=== PATIENT | male | born 1930 | race Caucasian/White ===

== ENCOUNTER 2017-01-11 03:16 | Inpatient (IN) | payer MEDICARE ==
[2017-01-10 13:08] VITALS: PULSE 87
[2017-01-11] VITALS (17 sets, daily range): BP systolic 160–232; BP diastolic 86–118; PULSE 63–102; RESP 16–22; TEMP 97.6–98.6; O2SAT 94–98
[2017-01-11] MEDS ORDERED: cloNIDine HCL 0.1 MG TAB PO ONE (03:30)
--- NOTE | 2017-01-11 03:35 | PD ---
HPI Chief Complaint: HTN Time Seen by Provider: 03:29 Travel History International Travel<30 days: No Contact w/Intl Traveler<30days: No Traveled to known affect area: No History of Present Illness HPI PATIENT DENIES ANY COMPLAINT....HOWEVER FAMILY MEMBER CALLED 911 STATING PATIENT WAS NOT HIMSELF MOST LIKELY DUE TO "WORSENING DEMENTIA AND NOT ABLE TO TAKE CARE OF HIMSELF." NO FAMILY ARRIVED WITH PATIENT......AT A LATER TIME DAUGHTER ARRIVED (AROUND 0440) AND GAVE HISTORY OF 2-3 DAYS OF HER DAD NOT "FEELING WELL" DENIES CP/SOB BUT DAUGHTER STATES THAT HE HAS NOT TAKEN HIS MEDICATIONS FOR SEVERAL WEEKS BECAUSE HE HAS A "BOLIVIAN CAREGIVER" THAT SAYS "[employer]" SO SHE ENCOURAGES PATIENT NOT TO TAKE MEDICATIONS PER DAUGHTER. [facility] Social History Tobacco Use: No Allergies-Medications (Allergen,Severity, Reaction): Coded Allergies: No Known Allergies (Unverified , 01/11/17) Reported Meds & Prescriptions Reported Meds & Active Scripts Active Active Prescriptions or Reported Medications Unobtainable Review of Systems ROS Limitations: Poor Historian (DENIES ANY COMPLAINT) Except as stated in HPI: all other systems reviewed are Neg Physical Exam Narrative GENERAL: SKIN: Warm and dry. HEAD: Atraumatic. Normocephalic. EYES: Pupils equal and round. No scleral icterus. No injection or drainage. ENT: No nasal bleeding or discharge. Mucous membranes pink and moist. NECK: Trachea midline. No JVD. CARDIOVASCULAR: Regular rate and rhythm. RESPIRATORY: No accessory muscle use. Clear to auscultation. Breath sounds equal bilaterally. GASTROINTESTINAL: Abdomen soft, non-tender, nondistended. MUSCULOSKELETAL: Extremities without clubbing, cyanosis, or edema. No obvious deformities. NEUROLOGICAL: Awake and alert. No obvious cranial nerve deficits. Motor grossly within normal limits. Five out of 5 muscle strength in the arms and legs. Normal speech. PSYCHIATRIC: Appropriate mood and affect; insight and judgment normal. Data Data Last Documented VS Vital Signs Date Time Temp Pulse Resp B/P (MAP) Pulse Ox O2 Delivery O2 Flow Rate FiO2 01/11/17 04:30 66 16 187/86 (119) 97 Nasal Cannula 2.00 01/11/17 03:29 97.9 Orders Orders Electrocardiogram (01/11/17 03:30) Complete Blood Count With Diff (01/11/17 03:30) Basic Metabolic Panel (Bmp) (01/11/17 03:30) Troponin I (01/11/17 03:30) B-Type Natriuretic Peptide (01/11/17 03:30) Prothrombin Time / Inr (Pt) (01/11/17 03:30) Act Partial Throm Time (Ptt) (01/11/17 03:30) Urinalysis - C+S If Indicated (01/11/17 03:30) Chest, Single Ap (01/11/17 03:30) Ct Brain W/O Iv Contrast(Rout) (01/11/17 03:30) Clonidine (Catapres) (01/11/17 03:30) Aspirin Chew (Aspirin Chew) (01/11/17 04:45) Nitroglycerin 2% Oint (Nitroglycerin 2% (01/11/17 04:45) Furosemide Inj (Lasix Inj) (01/11/17 04:45) Admit Order (Ed Use Only) (01/11/17 05:08) Labs Laboratory Tests Test 01/11/17 03:40 01/11/17 03:45 White Blood Count 8.8 TH/MM3 Red Blood Count 4.31 MIL/MM3 Hemoglobin 13.2 GM/DL Hematocrit 39.7 % Mean Corpuscular Volume 92.2 FL Mean Corpuscular Hemoglobin 30.5 PG Mean Corpuscular Hemoglobin Concent 33.1 % Red Cell Distribution Width 14.7 % Platelet Count 200 TH/MM3 Mean Platelet Volume 9.7 FL Neutrophils (%) (Auto) 69.8 % Lymphocytes (%) (Auto) 17.5 % Monocytes (%) (Auto) 8.7 % Eosinophils (%) (Auto) 3.3 % Basophils (%) (Auto) 0.7 % Neutrophils # (Auto) 6.2 TH/MM3 Lymphocytes # (Auto) 1.5 TH/MM3 Monocytes # (Auto) 0.8 TH/MM3 Eosinophils # (Auto) 0.3 TH/MM3 Basophils # (Auto) 0.1 TH/MM3 CBC Comment DIFF FINAL Differential Comment Prothrombin Time 11.7 SEC Prothromb Time International Ratio 1.1 RATIO Activated Partial Thromboplast Time 27.8 SEC Blood Urea Nitrogen 32 MG/DL Creatinine 1.71 MG/DL Random Glucose 95 MG/DL Calcium Level 9.4 MG/DL Sodium Level 143 MEQ/L Potassium Level 3.3 MEQ/L Chloride Level 108 MEQ/L Carbon Dioxide Level 29.3 MEQ/L Anion Gap 6 MEQ/L Estimat Glomerular Filtration Rate 38 ML/MIN Troponin I 0.11 NG/ML B-Type Natriuretic Peptide 2534 PG/ML Urine Color LIGHT-YELLOW Urine Turbidity CLEAR Urine pH 7.0 Urine Specific [place] 1.007 Urine Protein 100 mg/dL Urine Glucose (UA) NEG mg/dL Urine Ketones NEG mg/dL Urine Occult Blood TRACE Urine Nitrite NEG Urine Bilirubin NEG Urine Urobilinogen LESS THAN 2.0 MG/DL Urine Leukocyte Esterase NEG Urine RBC 1 /hpf Urine WBC LESS THAN 1 /hpf Microscopic Urinalysis Comment CULT NOT INDICATED MDM Medical Decision Making Medical Screen Exam Complete: Yes Emergency Medical Condition: Yes Medical Record Reviewed: Yes Interpretation(s) NSR 74, LVH, INFERIOLATERAL T WAVE INVERSION NOTED, NO STEMI PATTERN Differential Diagnosis PNA V UTI V CHF V STEMI V ANEMIA Narrative Course PATIENT WAS FOUND TO HAVE ELEV TROPONIN, ELEVATED BP AND FLUID IN LUNGS C/W HYPERTENSIVE EMERGENCY....PATIENT WAS AGGRESIVELY MANAGED AND ADMITTED Critical Care Narrative CRITICAL CARE NOTE: With evaluation of the patient, labs, EKG, receipt of radiologic studies, administration of medications, reevaluation the patient and discussion of the patient with the admitting physicians, the total critical care time was [45] minutes. Time to perform other separately billable procedures was not included in the critical care time. Diagnosis Primary Impression: Hypertensive urgency Additional Impressions: Acute exacerbation of CHF (congestive heart failure) Qualified Codes: I50.9 - Heart failure, unspecified Non-ST elevated myocardial infarction (non-STEMI) Admitting Information Admitting Physician Requests: Admit Scripts Unable to Obtain Active Prescriptions or Reported Efrain Faulkner MD Jan 11, 2017 03:35
[2017-01-11 03:56] LABS: BLOOD, URINE TRACE (NEG); GLUCOSE,URINE NEG (NEG); KETONE, URINE NEG (NEG); NITRITE,URINE NEG (NEG); URINE COLOR LIGHT-YELLOW (YELLW/STRAW)
[2017-01-11 04:02] LABS: AUTOMATED NEUTROPHIL # 6.2 TH/MM3 (1.8-7.7); BASOPHIL # 0.1 TH/MM3 (0-0.2); BASOPHIL % 0.7 % (0.0-2.0); EOSINOPHIL # 0.3 TH/MM3 (0-0.4); EOSINOPHIL % 3.3 % (0.0-4.0); HEMATOCRIT 39.7 % (39.0-51.0); HEMO FLAGS DIFF FINAL; LYMPH % 17.5 % (9.0-44.0); LYMPHOCYTE # 1.5 TH/MM3 (1.0-4.8); MEAN CELL VOLUME 92.2 FL (80.0-100.0); MEAN CORPUSCULAR HEMOGLOBIN 30.5 PG (27.0-34.0); MEAN CORPUSCULAR HGB CONC 33.1 % (32.0-36.0); MONO % 8.7 % (0.0-8.0); NEUT % 69.8 % (16.0-70.0); PLATELET COUNT 200 TH/MM3 (150-450); RED BLOOD COUNT 4.31 MIL/MM3 (4.50-5.90); RED CELL DISTRIBUTION WIDTH 14.7 % (11.6-17.2); WHITE BLOOD COUNT 8.8 TH/MM3 (4.0-11.0)
[2017-01-11 04:11] LABS: COMMENT (UR) CULT NOT INDICATED; CULTURE IF INDICATED CULT NOT INDICATED
[2017-01-11 04:17] LABS: APTT (PATIENT) 27.8 SEC (24.3-30.1); INTERNATIONAL NORMALIZED RATIO 1.1 RATIO; PROTHROMBIN TIME - PATIENT 11.7 SEC (9.8-11.6)
[2017-01-11 04:24] LABS: BICARBONATE 29.3 MEQ/L (21.0-32.0); POTASSIUM 3.3 MEQ/L (3.5-5.1)
--- NOTE | 2017-01-11 04:29 | RADRPT ---
EXAM DATE/TIME: 01/11/2017 03:44 [facility] COMPARISON: No previous studies available for comparison. INDICATIONS : Elevated blood pressure. RADIATION DOSE: 56.35 CTDIvol (mGy) MEDICAL HISTORY : Dementia. SURGICAL HISTORY : None. ENCOUNTER: Initial ACUITY: 1 day PAIN SCALE: 0/10 LOCATION: distal TECHNIQUE: Multiple contiguous axial images were obtained of the head. Using automated exposure control and adj ustment of the mA and/or kV according to patient size, radiation dose was kept as low as reasonably a chievable to obtain optimal diagnostic quality images. DICOM format image data is available electro nically for review and comparison. FINDINGS: CEREBRUM: The ventricles are normal for age. No evidence of midline shift, mass lesion, hemorrhage or acute in farction. No extra-axial fluid collections are seen. POSTERIOR FOSSA: The cerebellum and brainstem are intact. The 4th ventricle is midline. The cerebellopontine angle i s unremarkable. EXTRACRANIAL: The visualized portion of the orbits is intact. SKULL: The calvaria is intact. No evidence of skull fracture. CONCLUSION: 1. No acute findings. Mild white matter ischemic changes. Kev Bobby MD on January 11, 2017 at 4:24 Board Certified Radiologist. This report was verified electronically.
--- NOTE | 2017-01-11 04:36 | RADRPT ---
EXAM DATE/TIME: 01/11/2017 03:42 [facility] COMPARISON: No previous studies available for comparison. INDICATIONS : Shortness of breath and hypertension. MEDICAL HISTORY : None. SURGICAL HISTORY : CABG. ENCOUNTER: Initial ACUITY: 1 day PAIN SCORE: 0/10 LOCATION: chest FINDINGS: A single view of the chest demonstrates cardiomegaly with mild basilar airspace disease and small eff usions. Findings most characteristic of mild congestive heart failure. No pneumothorax. CONCLUSION: 1. Mild congestive heart failure. Kev Bobby MD on January 11, 2017 at 4:34 Board Certified Radiologist. This report was verified electronically.
[2017-01-11] MEDS ORDERED: NITROGLYCERIN 2% OINT 1 GM PACKET TOP ONE (04:45)
[2017-01-11] MEDS ORDERED: FUROSEMIDE 20 MG/2 ML VIAL IV PUSH ONE (04:45)
[2017-01-11] MEDS ORDERED: ASPIRIN 81 MG CHEW TAB PO ONE (04:45)
[2017-01-11] MEDS ORDERED: ACETAMINOPHEN 325 MG TAB PO PRN (05:15)
[2017-01-11] MEDS ORDERED: LACTULOSE SYRUP 20 GM/30 ML CUP PO PRN (05:15)
[2017-01-11] MEDS ORDERED: NITROGLYCERIN 2% OINT 1 GM PACKET TOP SCH (05:15)
[2017-01-11] MEDS ORDERED: SENNOSIDES 8.6 MG TAB PO PRN (05:15)
[2017-01-11] MEDS ORDERED: ONDANSETRON HCL 4 MG/2 ML VIAL IVP PRN (05:15)
[2017-01-11] MEDS ORDERED: BISACODYL 10 MG SUPP RECTAL PRN (05:15)
[2017-01-11] MEDS ORDERED: MAGNESIUM HYDROXIDE SUSP 30 ML CUP PO PRN (05:15)
[2017-01-11] MEDS ORDERED: POTASSIUM CHLORIDE 20 MEQ CONTROLLED RELEASE TAB PO ONE ×2 (05:15→07:45)
[2017-01-11] MEDS ORDERED: SODIUM CHLORIDE 0.9% FLUSH 10 ML FLUSH IV FLUSH PRN (05:15)
[2017-01-11] MEDS ORDERED: NITROGLYCERIN 0.4 MG SL 25 TABS/BTL SL PRN (05:15)
[2017-01-11] MEDS ORDERED: NALOXONE HCL 0.4 MG/ML AMP IV PUSH PRN (05:15)
[2017-01-11] MEDS: HEPARIN SODIUM - SQ 10,000 UNITS/ML VIAL SQ SCH ×2 (05:58→17:15)
[2017-01-11] MEDS ORDERED: METOLAZONE 5 MG TAB PO ONE (08:45)
[2017-01-11] MEDS ORDERED: FUROSEMIDE 20 MG/2 ML VIAL IV PUSH SCH (09:00)
--- NOTE | 2017-01-11 09:09 | MB ---
cc: PEEWEE STYLES M.D. DATE OF CONSULTATION: 01/11/2017 REASON FOR CONSULTATION Congestive heart failure. HISTORY OF PRESENT ILLNESS The patient is an 86-year-old white male, somewhat of a poor historian, with a history of hypertension, hyperlipidemia, dementia, coronary artery disease, who was brought to the hospital by family apparently due to failure to thrive. The patient has been developing worsening dementia and decreasing ability to take care of himself. According to the records he may have not been getting his medications for a few weeks. Work-up here in the hospital suggests congestive heart failure. The patient states his "breathing has been off" recently. He denies paroxysmal nocturnal dyspnea, dizziness, syncope, near-syncope, palpitations, chest pain. He also notes recent increase in baseline pedal edema. For the most part he is sedentary although he does activities around the house. PAST MEDICAL HISTORY 1. 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 2. Hypertension. 3. Hyperlipidemia. 4. Coronary artery disease status post four-vessel bypass surgery in 1979 with a redo bypass operation in 1993 (three-vessel), history of stent of a graft in 1997. 5. Osteoarthritis. 6. Dementia. PAST SURGICAL HISTORY 1. Two coronary artery bypass graft surgeries. 2. Right knee surgery. 3. Skin cancer excision. MEDICATIONS His cardiac medications at home are currently unknown. ALLERGIES No known drug allergies. FAMILY HISTORY Noncontributory. SOCIAL HISTORY The patient denies any history of alcohol or tobacco abuse. REVIEW OF SYSTEMS As in the history of present illness, otherwise negative or noncontributory. He also denies headache, abdominal pain, melena, dyspepsia, bright red blood per rectum, wheezing, cough. PHYSICAL EXAMINATION VITAL SIGNS: On physical examination his blood pressure is 175/90 with a pulse of 63, respirations 16. GENERAL: In general he is a well-developed, well-nourished white male in no acute distress. HEENT/NECK: Jugular venous pressure is normal. Carotid pulses are 2+ bilaterally and without bruits. CHEST: Examination of the chest reveals diminished breath sounds at the bases. CARDIAC: On cardiac examination he has a regular rhythm and rate with an S1, S2, S3. No definite murmur is audible. ABDOMEN: On abdominal examination he has a soft, nontender abdomen. Bowel sounds are present. There is no definite hepatosplenomegaly. EXTREMITIES: Examination of the extremities reveals no clubbing or cyanosis. There is 2+ pretibial edema bilaterally. EKG EKG shows sinus rhythm with premature atrial complexes, voltage criteria for left ventricular hypertrophy, nonspecific lateral T-wave abnormalities, no change from 1996. IMAGING Chest x-ray shows bibasilar airspace disease with small bilateral pleural effusions. LABORATORY Laboratory data includes troponin 0.11, BUN 32, creatinine 1.71, potassium 3.3, hemoglobin 13.2, WBC 8.8, platelets 200, brain natriuretic peptide level 2534. IMPRESSION Congestive heart failure in this 86-year-old white male with a history of coronary artery disease status post bypass surgeries x2, history of hypertension, hyperlipidemia, dementia. Chest x-ray, laboratory data and exam are all consistent with mild to moderate congestive heart failure. The precipitating factor for the heart failure may be multifactorial. He apparently has not received his medications in a few weeks. Overall there is no definite evidence for acute coronary syndrome, although the patient is a poor historian. Echocardiogram is pending. The slightly elevated troponin level is nonspecific, possibly due to congestive heart failure as well as his renal insufficiency. RECOMMENDATIONS 1. Continue intravenous Lasix diuresis. 2. Try to add low-dose beta vishnu. 3. No KRISHNA inhibitor at this time with his renal insufficiency. 4. Await his 2-D echo. 5. Overall conservative cardiac therapy and evaluation given his poor functional status, dementia, advanced age. MD DELLA Najera/MINI /8:33 AM /8:50 AM JAVY
--- NOTE | 2017-01-11 09:16 | MH ---
cc: JORGITO LAKE MD DATE OF ADMISSION 01/11/2017 DATE OF 1930 REASON FOR ADMISSION Uncontrolled blood pressure, possible as confusion. TRAVEL IN THE LAST 30 DAYS None HISTORY OF PRESENT ILLNESS This is an 86-year-old white male who was brought to the emergency room via ambulance called by a family member. According to the daughter who arrived at a later time states that her father has not been feeling well and she is not sure that he is taking all his medicine correctly. According to the record, there is a Chinese caregiver who daughter feels does not encourage her dad to take his meds. The patient is a poor historian. He is unable to give any accurate history. He does answer a few simple questionable and he does state that he has been having some left-sided chest pain. He does not know how long or any other information. He denies any shortness of breath, denies any headache. His statement is, "I just have not felt well.". The patient does note some mild nausea, but no vomiting. Most of the information is being gathered from the chart. MEDICAL AND SURGICAL HISTORY Currently unable to obtain any other medical information, except it is noted the patient has: 1. Dementia 2. Cardiovascular disease 3. The patient has a scar on his lower extremities as well as a scar from CABG. 4. Hypertension which is uncontrolled. 5. Congestive heart failure ALLERGIES No known drug allergies. MEDICATIONS Active, none reported. None brought with him. REVIEW OF SYSTEMS Poor historian, unable to obtain any accurate ROS except the patient has complained of some left sided chest pain nonradiating. He has not been feeling well. Nausea, but no vomiting. Unknown if he has been taking his medication or not. Other systems negative or unremarkable. PHYSICAL EXAM VITAL SIGNS: Temperature is 97.9, pulse 88 for the high, 63 for the low, respiratory rate 16, blood pressure initially on admission 232/118 now 170/90, O2 sat 98 currently two liters nasal cannula as needed. GENERAL: This is an elderly white male looks to be his stated age. He is awake, resting in the bed with no acute shortness of breath, poor historian. SKIN: Turgor, pale, pink. Mucous membranes are pink, warm, and dry. HEENT: Atraumatic, normocephalic. BENNETT at 2. Mucous membranes are slightly dry. No scleral icterus. NECK: Supple. CARDIOVASCULAR: S1, S2, palpable systolic murmur noted at the left sternal border. S3 gallop. He has 2+ pitting edema in his lower extremities. His extremities are warm to touch. LUNGS: Sounds are diminished with bibasilar rales and decreased breath sounds in the bases bilateral. No active wheezing or rhonchi. ABDOMEN: Round, soft, nontender, nondistended. Bowel sounds are active. MUSCULOSKELETAL: Moves his extremities with purpose. No obvious deformities. NEUROLOGIC: He is a poor historian, but he is awake. He has no facial grimace, equal dried yeast supervisor in his extremities. PSYCHIATRIC: Mood and affect are appropriate without any anxiety. DIAGNOSTIC DATA WBC count 8.8, RBC 4.31, hemoglobin 13.2, hematocrit 39.7, platelet count 200, elevated diff, monocyte percentage 8.7, PT/INR is 1.1. Chemistry sodium 143, potassium 3.3, chloride 108, carbon dioxide 29.3, amnion gap 6, BUN 32, creatinine 1.71, GFR 38, troponin 0.11, BNP 2534. Urine is negative except for a trace of occult blood and protein level is 100. No culture is indicated. IMAGING STUDIES Shows chest x-ray to have mild congestive heart failure. Head CT, no acute findings, mild white matter ischemic changes. ASSESSMENT/PLAN 1. CHF exacerbation, elevated troponin's, rule out IA. 2. Possible non-STEMI, chest pain. 3. Hypertensive urgency 4. Acute kidney injury, rule out chronic kidney disease 5. Dementia Our plan is to: 1. Admit inpatient status. 2. We will monitor vital signs q4. 3. Cardiac telemetry. 4. Heart healthy diet. 5. The patient is receiving p.o. potassium, heparin subcu for DVT prophylaxis. 6. Bowel regimen with stool softeners and laxatives as needed. 7. We will place him on an aspirin, nitroglycerin ointment, consult cardiology for their expert opinion. 8. A 2-D echo has been ordered. 9. PUD prophylaxis with Pepcid. 10. The patient is receiving IV Lasix 20 mg b.i.d. He did receive Lasix in the emergency room and he is actively diuresing. 11. We well monitor intensive intake and output, daily weight. 12. Out of bed, but only with assistance. 13. The patient had clonidine ordered 0.1 mg p.o. He received one dose in the emergency room and we will give as needed doses for systolic BP greater than 160 or greater than 90. There is no family present. We will need to gather more information and data. It looks like there was a daughter who was here earlier this morning. Currently the patient is full code, full aggressive care and we will continue to follow. Dictated by BRANDIN Hyatt MD SARA Navarro/SAM /8:30 AM /8:47 AM seen, examined by myself, Dr Lake, today Discussed with patient's granddaughter at his bedside Patient is very confused, combative, argumentative, very difficult to examine, 86-year-old gentleman with history of dementia, hyperlipidemia, hypertension, CABG Admitted with acute systolic heart failure, ejection fraction 20-25% with global hypokinesis, In addition his creatinine was 1.7, potassium 3.3, blood pressure 192/110, troponin is 0.11 Seen [address] tobacco sizer Dr[address] Rodgers Due to diuretics, follow renal function, replace potassium, blood pressure control with hydralazine Unclear if this gentleman would benefit from a defibrillator Discussed with mid level provider Discussed with nurse The exam, history, and the medical decision-making described in the above note were completed with the assistance of the mid-level provider. I reviewed the findings presented. I attest that I had a [id number] encounter with the patient on the same day, and personally performed and documented my assessment and findings in the medical record. JAVY
[2017-01-11] MEDS: cloNIDine HCL 0.1 MG TAB PO PRN ×3 (09:45→22:45)
[2017-01-11] MEDS: CARVEDILOL 3.125 MG TAB PO SCH ×2 (09:45→20:28)
[2017-01-11] MEDS: FUROSEMIDE 40 MG/4 ML VIAL IV PUSH SCH ×2 (09:45→17:54)
[2017-01-11] MEDS: FAMOTIDINE 20 MG TAB PO SCH ×2 (09:46→20:28)
[2017-01-11] MEDS: SODIUM CHLORIDE 0.9% FLUSH 10 ML FLUSH IV FLUSH SCH ×2 (09:46→20:28)
--- NOTE | 2017-01-11 10:18 | EKG ---
Date Performed: 01/11/2017 Time Performed: 03:40:14 PTAGE: 86 years EKG: Sinus rhythm WITH OCCASIONAL SUPRAVENTRICULAR PREMATURE COMPLEXES IN A BIGEMINAL PATTERN LEFT ATRIAL ENLARGEMENT LEFT VENTRICULAR HYPERTROPHY AND ST-T CHANGE ABNORMAL ECG PREVIOUS TRACING : 02/18/1997 17.42 Compared to prior tracing no significant change DOCTOR: Eddy Perez Interpretating Date/Time 01/11/2017 10:12:58
--- NOTE | 2017-01-11 12:46 | ECHRPT ---
Indication: heart failure CONCLUSIONS Upper normal left ventricular size. Mild concentric left ventricular hypertrophy. The left ventricular systolic function is severely reduced with an estimated ejection fraction in th e range of 20-25%. Global hypokinesis. Moderate aortic valve regurgitation. Minimal leaflet sclerosis. Structurally normal tricuspid valve. Trace tricuspid regurgitation. Trace mitral valve regurgitation. BP: 175 / 90 HR: 63 Rhythm: MEASUREMENTS (Male / Female) Normal Values Technical Quality:Good 2D ECHO LV Diastolic Diameter PLAX 5.2 cm 4.2 - 5.9 / 3.9 - 5.3 cm LV Systolic Diameter PLAX 4.8 cm IVS Diastolic Thickness 1.5 cm 0.6 - 1.0 / 0.6 - 0.9 cm LVPW Diastolic Thickness 0.8 cm 0.6 - 1.0 / 0.6 - 0.9 cm LV Relative Wall Thickness 0.4 RV Internal Dim ED PLAX 2.3 cm LA Systolic Diameter LX 4.5 cm 3.0 - 4.0 / 2.7 - 3.8 cm M-MODE Aortic Root Diameter MM 3.8 cm AV Cusp Separation MM 1.9 cm DOPPLER AI Peak Velocity 455.0 cm/s AI Peak Gradient 82.8 mmHg AI Pressure Half Time 512.0 ms MR Peak Velocity 444.5 cm/s MR Peak Gradient 79.0 mmHg Mitral E Point Velocity 90.8 cm/s Mitral A Point Velocity 73.1 cm/s Mitral E to A Ratio 1.2 TR Peak Velocity 191.7 cm/s TR Peak Gradient 14.7 mmHg Right Atrial Pressure 10.0 mmHg Pulmonary Artery Systolic Pressu 24.7 mmHg Right Ventricular Systolic Press 24.7 mmHg FINDINGS LEFT VENTRICLE Upper normal left ventricular size. Mild concentric left ventricular hypertrophy. The left ventricular systolic function is severely reduced with an estimated ejection fraction in th e range of 20-25%. Global hypokinesis. RIGHT VENTRICLE Normal right ventricular size and systolic function. LEFT ATRIUM The left atrial size is normal. RIGHT ATRIUM The right atrial size is normal. ATRIAL SEPTUM Normal atrial septal thickness without atrial level shunting by limited color doppler interrogation. AORTA The aortic root and proximal ascending aorta are normal in size on limited imaging. MITRAL VALVE Trace mitral valve regurgitation. AORTIC VALVE Moderate aortic valve regurgitation. Minimal leaflet sclerosis. TRICUSPID VALVE Structurally normal tricuspid valve. Trace tricuspid regurgitation. PULMONARY VALVE No pulmonary valve regurgitation or stenosis. VESSELS The inferior vena cava is normal in size. PERICARDIUM No pericardial effusion. Tru H. Vishal MD (Electronically Signed) Final Date:11 January 2017 12:45
--- NOTE | 2017-01-11 17:27 | EKG ---
Date Performed: 01/11/2017 Time Performed: 11:12:36 PTAGE: 86 years EKG: Sinus rhythm Possible left atrial abnormality LVH with secondary repolarization abnormality Extensive ST-T change s may be due to hypertrophy and/or ischemia Abnormal ECG NO PREVIOUS TRACING DOCTOR: Tru Rodgers Interpretating Date/Time 01/11/2017 17:25:55
[2017-01-11] MEDS: hydrALAZINE HCL 25 MG TAB PO SCH ×2 (17:54→20:28)
--- NOTE | 2017-01-11 18:23 | MB ---
cc: KITA CORRIGAN DATE OF CONSULTATION 01/11/17 IMPRESSION 1. Confusion. 2. Uncontrolled hypertension. The patient's [id number] tells me that the patient's [employer]eric[employer] aide teacher was not giving him his medications. 3. Atherosclerotic heart disease, history of two separate bypass grafting procedures. He also has a history of PCI and stent. 4. Dementia. The patient is currently disoriented to place and time, does not know who the president is, does not know that he is in the hospital. 5. Hypertension. 6. Dyslipidemia. 7. Dilated cardiomyopathy. [place] [employer] functional class III, etiology atherosclerotic heart disease. It should be noted that the patient has had an interval decrease in his left ventricular function over the past year and a half. Stress test done in August of 2015 demonstrated anteroseptal reversible ischemia with an ejection fraction of 46%. Current echocardiogram suggests his EF is more in the 25% range. 8. Chronic kidney disease 9. Nonspecific elevation in troponins. RECOMMENDATIONS I would review the patient's home medications. In view of his general medical condition, he is not a candidate for invasive studies. It should be noted he has not been complaining of any shortness of breath or chest pain recently. CLINICAL DATA Mr. Campuzano is an 86-year-old male known to myself who was admitted to the hospital apparently today with high blood pressure and not feeling well. He had no specific complaints. He has dementia. Apparently, his medications have not been given to him correctly. He has a history of atherosclerotic heart disease. As noted above, he did have elevated troponins which are nonspecific and likely related to renal insufficiency. EKG demonstrates no acute ST-T changes, although it is very abnormal. He has a history of coronary artery disease, coronary bypass grafting surgery two separate times. He apparently does have a history of congestive heart failure. He has a history of dementia. When I last saw the patient, his medications included 1. Potassium chloride 20 mEq t.i.d. 2. Aspirin 81 daily. 3. Lisinopril 20 daily. 4. Atorvastatin 20 daily. 5. Atenolol 25 mg daily. 6. Nifedipine 30 mg long-acting form once daily. He has no history of cardiac arrhythmias. 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 He currently denies chest pain, shortness of breath. He has had no dizzy spells, although is quite sedentary. He has had no lower extremity edema claudication. No febrile illness. PHYSICAL EXAMINATION GENERAL: A lethargic but arousable male sitting in bed. He is breathing room air. He is not tachypneic nor dyspneic. VITAL SIGNS: Most recent blood pressure is 175/90, heart rate of 63. HEENT: Anicteric sclerae, jugular venous pressures are not elevated. NECK: No bruits are noted. LUNGS: Clear to auscultation. CARDIAC: Regular rate and rhythm, 2/6 systolic ejection murmur. I cannot auscultate a diastolic murmur. ABDOMEN: Soft, nontender. EXTREMITIES: Free of cyanosis, clubbing, edema. Several abrasions/scabs are noted. Peripheral pulses are palpable. IMAGING STUDIES Chest x-ray demonstrates cardiomegaly, no definite effusions are noted. LABORATORY DATA Lytes 143, 3.3, 108, 29.3 with a BUN of 32, creatinine of 1.7, GFR 38 mL per minute. Troponins 0.08 and 0.11. BNP 2534. CARDIOLOGY STUDIES A 12-lead electrocardiogram demonstrates a sinus rhythm with left ventricular hypertrophy and nonspecific ST-T changes. An echocardiogram suggested an interval decrease in left ventricular function, EF currently reported in the 25% range. DISCUSSION This is an 86-year-old demented gentleman with known coronary artery disease admitted to the hospital with uncontrolled hypertension secondary to noncompliance with medications on the part of his caregiver. Recommendations are as noted above. My office records have been applied to the chart, although I have not seen the patient in a year and a half. DO RENA Hackett/ /3:46 PM /5:59 PM
[2017-01-11] MEDS: HALOPERIDOL LACTATE 5 MG/ML AMP IM PRN (20:27)
[2017-01-11] MEDS: POTASSIUM CHLORIDE 20 MEQ CONTROLLED RELEASE TAB PO SCH (20:28)
[2017-01-12] VITALS (22 sets, daily range): BP systolic 144–196; BP diastolic 86–115; PULSE 64–92; RESP 16–22; TEMP 97.8–98.7; O2SAT 94–96
[2017-01-12 04:41] LABS: BASOPHIL # 0.1 TH/MM3 (0-0.2); EOSINOPHIL # 0.3 TH/MM3 (0-0.4); EOSINOPHIL % 3.8 % (0.0-4.0); HEMATOCRIT 43.6 % (39.0-51.0); HEMO FLAGS DIFF FINAL; LYMPH % 20.3 % (9.0-44.0); LYMPHOCYTE # 1.5 TH/MM3 (1.0-4.8); MEAN CELL VOLUME 91.5 FL (80.0-100.0); MEAN CORPUSCULAR HEMOGLOBIN 30.6 PG (27.0-34.0); MEAN CORPUSCULAR HGB CONC 33.4 % (32.0-36.0); MONO % 6.5 % (0.0-8.0); NEUT % 68.4 % (16.0-70.0); PLATELET COUNT 197 TH/MM3 (150-450); RED BLOOD COUNT 4.77 MIL/MM3 (4.50-5.90); RED CELL DISTRIBUTION WIDTH 14.8 % (11.6-17.2); WHITE BLOOD COUNT 7.4 TH/MM3 (4.0-11.0)
[2017-01-12] MEDS: HALOPERIDOL LACTATE 5 MG/ML AMP IM PRN ×3 (04:44→15:04)
[2017-01-12] MEDS: HEPARIN SODIUM - SQ 10,000 UNITS/ML VIAL SQ SCH ×2 (05:00→15:30)
[2017-01-12] MEDS: hydrALAZINE HCL 25 MG TAB PO SCH ×3 (05:00→20:51)
[2017-01-12 05:17] LABS: BICARBONATE 33.9 MEQ/L (21.0-32.0); MAGNESIUM 2.2 MG/DL (1.5-2.5)
[2017-01-12 05:25] LABS: POTASSIUM 2.8 MEQ/L (3.5-5.1)
[2017-01-12] MEDS ORDERED: POTASSIUM CHLOR 40 MEQ PREMIX 100 ML IV SCH (06:30)
[2017-01-12] MEDS ORDERED: POTASSIUM CHLORIDE IV SCH (07:00)
[2017-01-12] MEDS ORDERED: SODIUM CHLOR 0.9% IV SCH (07:00)
[2017-01-12] MEDS: FAMOTIDINE 20 MG TAB PO SCH ×2 (08:22→20:51)
[2017-01-12] MEDS: POTASSIUM CHLORIDE 20 MEQ CONTROLLED RELEASE TAB PO SCH ×2 (08:22→20:51)
[2017-01-12] MEDS: ASPIRIN 325 MG TAB PO SCH (08:22)
[2017-01-12] MEDS: CARVEDILOL 3.125 MG TAB PO SCH (08:22)
[2017-01-12] MEDS: SODIUM CHLORIDE 0.9% FLUSH 10 ML FLUSH IV FLUSH SCH ×2 (08:23→20:51)
[2017-01-12] MEDS: FUROSEMIDE 40 MG/4 ML VIAL IV PUSH SCH ×2 (08:24→18:41)
--- NOTE | 2017-01-12 10:04 | PD.CARD.PN ---
Subjective Subjective Remarks Denies dyspnea, dizziness, CP, PND, palpitations. Objective Medications Item Value Date Time Aspirin 325 mg 01/12/17 0900 (Aspirin) DAILY/PO 01/12/17 0822 Hydralazine HCl 25 mg 01/11/17 1800 (Apresoline) Q8HR/PO 01/12/17 0500 Furosemide 40 mg 01/11/17 0900 (Lasix Inj) BID@0900,1800/IV PUSH 01/12/17 0824 Carvedilol 3.125 mg 01/11/17 0900 (Coreg) Q12HR/PO 01/12/17 0822 Amlodipine 10 mg 01/11/17 0900 Besylate DAILY/PO 01/12/17 0822 (Norvasc) Heparin Sodium 5,000 units 01/11/17 0515 (Porcine) Q12H/SQ 01/12/17 0500 (Heparin Inj) Vital Signs / I&O Vital Signs Date Time Temp Pulse Resp B/P (MAP) Pulse Ox O2 Delivery O2 Flow Rate FiO2 01/12/17 08:00 68 01/12/17 08:00 98.4 81 16 196/113 (140) 96 01/12/17 06:00 76 01/12/17 05:00 82 01/12/17 04:00 64 01/12/17 03:00 65 01/12/17 03:00 97.9 75 22 169/115 (133) 96 01/12/17 02:00 76 01/12/17 01:00 68 01/12/17 00:00 72 01/11/17 23:00 90 01/11/17 23:00 97.6 78 22 174/112 (132) 96 01/11/17 22:00 71 01/11/17 21:00 72 01/11/17 20:37 97.8 73 22 184/94 (124) 98 Manual Cuff/Auscultation 01/11/17 20:00 102 01/11/17 19:00 74 01/11/17 16:06 98.6 66 18 160/90 (113) 96 01/11/17 12:00 72 01/11/17 11:25 78 171/97 (121) 01/11/17 11:00 70 01/11/17 10:00 74 I/O 9/29/17 901/11/17 01/12/17 01/12/17 01/12/17 07:00 15:00 23:00 07:00 15:00 23:00 Intake Total 640 ml 400 ml Output Total 150 ml 350 ml Balance -150 ml 290 ml 400 ml Intake Oral 640 ml 400 ml Output Urine Total 150 ml 350 ml # Voids 2 4 # Bowel Movements 0 Physical Exam GENERAL: Well developed, well nourished. No acute distress. HEENT: Jugular venous pressure is normal. CHEST: Lungs clear to auscultation bilaterally. Unlabored respiratory effort. CARDIAC: Regular rate and rhythm without S4, or murmur. Possible S3. ABDOMEN: Soft, nontender, no hepatosplenomegaly. Bowel sounds present. EXTREMITIES: No clubbing, cyanosis. 1+ pretibial edema. Laboratory Laboratory Tests Test 01/11/17 10:11 01/11/17 22:29 01/12/17 04:26 Troponin I 0.08 NG/ML 0.07 NG/ML White Blood Count 7.4 TH/MM3 Red Blood Count 4.77 MIL/MM3 Hemoglobin 14.6 GM/DL Hematocrit 43.6 % Mean Corpuscular Volume 91.5 FL Mean Corpuscular Hemoglobin 30.6 PG Mean Corpuscular Hemoglobin Concent 33.4 % Red Cell Distribution Width 14.8 % Platelet Count 197 TH/MM3 Mean Platelet Volume 9.8 FL Neutrophils (%) (Auto) 68.4 % Lymphocytes (%) (Auto) 20.3 % Monocytes (%) (Auto) 6.5 % Eosinophils (%) (Auto) 3.8 % Basophils (%) (Auto) 1.0 % Neutrophils # (Auto) 5.0 TH/MM3 Lymphocytes # (Auto) 1.5 TH/MM3 Monocytes # (Auto) 0.5 TH/MM3 Eosinophils # (Auto) 0.3 TH/MM3 Basophils # (Auto) 0.1 TH/MM3 CBC Comment DIFF FINAL Differential Comment Blood Urea Nitrogen 31 MG/DL Creatinine 1.61 MG/DL Random Glucose 92 MG/DL Calcium Level 9.6 MG/DL Phosphorus Level 3.0 MG/DL Magnesium Level 2.2 MG/DL Sodium Level 140 MEQ/L Potassium Level 2.8 MEQ/L Chloride Level 101 MEQ/L Carbon Dioxide Level 33.9 MEQ/L Anion Gap 5 MEQ/L Estimat Glomerular Filtration Rate 41 ML/MIN Assessment and Plan Problem List: (1) Congestive heart failure (CHF) ICD Codes: I50.9 - Heart failure, unspecified Status: Acute Plan: Stable overnight. Pedal edema seems less. Patient asymptomatic. EF 20- 25% by echo. Precipitating factor for the CHF possibly not receiving medications for weeks, suboptimal BP control. REC continued IV Lasix diuresis continue hydralazine, carvedilol, increase doses (2) CAD (coronary artery disease) ICD Codes: I25.10 - Atherosclerotic heart disease of [place] coronary artery without angina pectoris Status: Chronic Plan: CAD status stable. No definite evidence for ACS. No recent angina symptoms. Doubt slightly elevated troponin due to ACS. EKG with no acute ST/T changes. Rec continue conservative therapy/evaluation. (3) Hypertension ICD Codes: I10 - Essential (primary) hypertension Status: Chronic Plan: Continued suboptimal BP control. Rec increase hydralazine and carvedilol. Code Status full code Discussed Condition With patient Problem Qualifiers (1) Congestive heart failure (CHF): Qualified Codes: I50.22 - Chronic systolic (congestive) heart failure (2) CAD (coronary artery disease): Qualified Codes: I25.10 - Atherosclerotic heart disease of [place] coronary artery without angina pectoris (3) Hypertension: Qualified Codes: I10 - Essential (primary) hypertension Tru Rodgers MD Jan 12, 2017 10:04
[2017-01-12] MEDS: hydrALAZINE HCL 25 MG TAB PO PRN ×2 (10:37→18:42)
--- NOTE | 2017-01-12 10:41 | HHI.PR ---
Subjective Subjective Remarks Resting in the bed Daughter at his bedside Awake conversational Mild, compensated shortness of breath at rest Monitoring BP and medical management No acute chest pain (Lidya Anthony) Review of Systems Constitutional Constitutional: Fatigue, Weakness (Lidya Anthony) Pulmonary Respiratory: Coughing (occasional), Shortness of Breath (Lidya Anthony) Musculoskeletal MS: Weakness (generalized), Swelling (lower extremities) (Lidya Anthony) Psychiatric Psychiatric: Normal Mood (with dementia) (iLdya Anthony) Vitals/Results Vital Signs Vital Signs Date Time Temp Pulse Resp B/P (MAP) Pulse Ox O2 Delivery O2 Flow Rate FiO2 01/12/17 10:00 174/99 (124) 01/12/17 08:00 68 01/12/17 08:00 98.4 81 16 196/113 (140) 96 01/12/17 06:00 76 01/12/17 05:00 82 01/12/17 04:00 64 01/12/17 03:00 65 01/12/17 03:00 97.9 75 22 169/115 (133) 96 01/12/17 02:00 76 01/12/17 01:00 68 01/12/17 00:00 72 01/11/17 23:00 90 01/11/17 23:00 97.6 78 22 174/112 (132) 96 01/11/17 22:00 71 01/11/17 21:00 72 01/11/17 20:37 97.8 73 22 184/94 (124) 98 Manual Cuff/Auscultation 01/11/17 20:00 102 01/11/17 19:00 74 01/11/17 16:06 98.6 66 18 160/90 (113) 96 01/11/17 12:00 72 01/11/17 11:25 78 171/97 (121) 01/11/17 11:00 70 (Lidya Anthony) CBC/BMP: 01/12/17 0426 01/12/17 0426 Lab Results Laboratory Tests Test 01/11/17 22:29 01/12/17 04:26 Troponin I 0.07 NG/ML White Blood Count 7.4 TH/MM3 Red Blood Count 4.77 MIL/MM3 Hemoglobin 14.6 GM/DL Hematocrit 43.6 % Mean Corpuscular Volume 91.5 FL Mean Corpuscular Hemoglobin 30.6 PG Mean Corpuscular Hemoglobin Concent 33.4 % Red Cell Distribution Width 14.8 % Platelet Count 197 TH/MM3 Mean Platelet Volume 9.8 FL Neutrophils (%) (Auto) 68.4 % Lymphocytes (%) (Auto) 20.3 % Monocytes (%) (Auto) 6.5 % Eosinophils (%) (Auto) 3.8 % Basophils (%) (Auto) 1.0 % Neutrophils # (Auto) 5.0 TH/MM3 Lymphocytes # (Auto) 1.5 TH/MM3 Monocytes # (Auto) 0.5 TH/MM3 Eosinophils # (Auto) 0.3 TH/MM3 Basophils # (Auto) 0.1 TH/MM3 CBC Comment DIFF FINAL Differential Comment Blood Urea Nitrogen 31 MG/DL Creatinine 1.61 MG/DL Random Glucose 92 MG/DL Calcium Level 9.6 MG/DL Phosphorus Level 3.0 MG/DL Magnesium Level 2.2 MG/DL Sodium Level 140 MEQ/L Potassium Level 2.8 MEQ/L Chloride Level 101 MEQ/L Carbon Dioxide Level 33.9 MEQ/L Anion Gap 5 MEQ/L Estimat Glomerular Filtration Rate 41 ML/MIN Imaging Remarks Last Impressions Head CT 01/11/17329 Signed Impressions: Service Date/Time: Wednesday, January 11, 2017 03:44 - CONCLUSION: 1. No acute findings. Mild white matter ischemic changes. Kev Bobby MD Chest X-Ray 01/11/17329 Signed Impressions: Service Date/Time: Wednesday, January 11, 2017 03:42 - CONCLUSION: 1. Mild congestive heart failure. Kev Bobby MD (Lidya Anthony) Physical Exam General General Appearance: Well Developed, Pale (Lidya Anthony) Eyes Eye Exam: Pupils Equal, Pupils Reactive (Lidya Anthony) Ears & Nose Ears & Nose Exam: Nasal Mucosa [place] (pale) (Lidya Anthony) Throat Throat Exam: Oral Mucosa [place] & Moist (pale) (Lidya Anthony) Neck Neck Exam: Neck Supple, Trachea Midline (Lidya Anthony) Pulmonary Resp Exam: Crackles (bibasally), Rhonchi (occasional), Decreased Bases, Diminished Breath Sounds (Lidya Anthony) Cardiology CV Exam: Regular (Lidya Anthony) Gastrointestinal/Abdomen GI Exam: Soft, Non-Tender, Bowel Sounds Present (Lidya Anthony) Genitourinary Exam: Clear Urine (intensive intake and output, continue diuresis) (Lidya Anthony) Musculoskeletal MS Exam: Joints Intact, Good Strength (Lidya Anthony) Neurologic Neuro Exam: Awake (pleasant confusion history of dementia), Speech Clear, Moving All Extremities (Lidya Anthony) Assessment/Plan Assessment/Plan Vital signs reviewed BP manual 174/99, afebrile Labs reviewed potassium 2.8, CBC stable, receiving IV and by mouth Lasix, recheck BMP in the morning 1. CHF exacerbation, elevated troponin's, rule out [place]. Appreciate cardiac consult, continues to diurese with IV Lasix, supplemental potassium, echo shows EF to be 20-25%, continue to work on BP control Appreciate radiology input and plan a care 2. Possible non-STEMI, chest pain. No acute ACS noted, continue with BP control and medical management 3. Hypertensive urgency, still uncontrolled today Increased Coreg and hydralazine by mouth, encouraged manual blood pressures to verify any increase or decrease and systolic pressure 4. Acute kidney injury, rule out chronic kidney disease Continue to monitor labs especially with diuresis, replace potassium, probable secondary to his low EF, medical management 5. Dementia No acute events continue medical management, supportive care 6. Hypokalemia severe Patient has received supplemental potassium daily since admission, will receive 40 mEq IV, and 40 mEq by mouth today, recheck labs in the morning, BMP Discharge planning once CHF stable, BP stable, in the next day or [address] polk, seen on his behalf Discussed with patient and his daughter Discussed with nurse (Lidya Anthony) Assessment/Plan pt is seen & Examined chart reviewed pt is confused / argumentative / refusing to take meds grand son is at bedside d/w grand son d/w RN agree w above see orders will f/u (Edward Polk MD) Lidya Anthony Jan 12, 2017 10:41 Edward Polk MD Jan 12, 2017 15:46
[2017-01-12] MEDS: cloNIDine HCL 0.1 MG TAB PO SCH ×3 (13:49→20:51)
[2017-01-12] MEDS ORDERED: HALOPERIDOL LACTATE 5 MG/ML AMP IM ONE (18:00)
[2017-01-12] MEDS ORDERED: CARVEDILOL 6.25 MG TAB PO SCH (21:00)
[2017-01-13] VITALS (29 sets, daily range): BP systolic 100–191; BP diastolic 53–94; PULSE 56–95; RESP 14–20; TEMP 96.8–98.1; O2SAT 92–98
[2017-01-13] MEDS: HALOPERIDOL LACTATE 5 MG/ML AMP IM PRN ×3 (03:34→16:14)
[2017-01-13] MEDS: cloNIDine HCL 0.1 MG TAB PO SCH ×2 (06:19→22:15)
[2017-01-13] MEDS: HEPARIN SODIUM - SQ 10,000 UNITS/ML VIAL SQ SCH ×2 (06:19→17:24)
[2017-01-13] MEDS: hydrALAZINE HCL 25 MG TAB PO SCH ×3 (06:20→22:15)
[2017-01-13 07:21] LABS: BICARBONATE 32.6 MEQ/L (21.0-32.0)
[2017-01-13 07:29] LABS: POTASSIUM 2.8 MEQ/L (3.5-5.1)
[2017-01-13] MEDS ORDERED: POTASSIUM CHLOR 20 MEQ PREMIX 100 ML IV ONE (08:00)
[2017-01-13] MEDS: SODIUM CHLORIDE 0.9% FLUSH 10 ML FLUSH IV FLUSH SCH ×2 (08:59→21:00)
[2017-01-13] MEDS: POTASSIUM CHLORIDE 20 MEQ CONTROLLED RELEASE TAB PO SCH ×2 (09:00→22:15)
[2017-01-13] MEDS: ASPIRIN 325 MG TAB PO SCH (09:00)
[2017-01-13] MEDS: FAMOTIDINE 20 MG TAB PO SCH ×2 (09:00→22:14)
--- NOTE | 2017-01-13 09:42 | PD.CARD.PN ---
Subjective Subjective Remarks Denies dyspnea, CP, orthopnea, dizziness, palpitations. Objective Medications Item Value Date Time Carvedilol 6.25 mg 01/12/17 2100 (Coreg) Q12HR/PO 01/12/172050 Hydralazine HCl 50 mg 01/12/17 1400 (Apresoline) Q8HR/PO 01/13/17 0620 Clonidine 0.1 mg 01/12/17 1400 (Catapres) Q8HR/PO 01/13/17 0619 Aspirin 325 mg 01/12/17 0900 (Aspirin) DAILY/PO 01/12/17 0822 Furosemide 40 mg 01/11/17 0900 (Lasix Inj) BID@0900,1800/IV PUSH 01/12/17 184 Amlodipine 10 mg 01/11/17 0900 Besylate DAILY/PO 01/12/17 0822 (Norvasc) Heparin Sodium 5,000 units 01/11/17 0515 (Porcine) Q12H/SQ 01/13/17 0619 (Heparin Inj) Vital Signs / I&O Vital Signs Date Time Temp Pulse Resp B/P (MAP) Pulse Ox O2 Delivery O2 Flow Rate FiO2 01/13/17 07:35 97.9 72 14 142/74 (96) 92 01/13/17 07:00 82 01/13/17 06:00 64 01/13/17 05:00 64 01/13/17 04:00 68 01/13/17 03:00 97.5 86 20 167/90 (115) 94 01/13/17 03:00 64 01/13/17 02:00 75 01/13/17 01:00 75 01/13/17 00:00 76 01/13/17 00:00 97.6 82 20 153/93 (113) 93 01/12/17 23:00 86 01/12/17 22:00 72 01/12/17 21:00 92 01/12/17 20:00 97.8 86 20 195/111 (139) 96 01/12/17 20:00 82 01/12/17 19:00 89 01/12/17 16:00 98.4 92 16 160/100 (120) 96 01/12/17 16:00 88 01/12/17 15:00 92 01/12/17 14:00 80 01/12/17 13:00 68 01/12/17 12:00 98.7 70 16 144/86 (105) 94 01/12/17 12:00 73 01/12/17 11:00 68 01/12/17 10:00 68 01/12/17 10:00 174/99 (124) I/O 01/12/17 01/12/17 01/12/17 01/13/17 01/13/17 01/13/17 07:00 15:00 23:00 07:00 15:00 23:00 Intake Total 400 ml 270 ml 730 ml 480 ml Output Total 1200 ml 825 ml Balance 400 ml 270 ml -470 ml -345 ml Intake Oral 400 ml 480 ml 480 ml IV Total 270 ml 250 ml Output Urine Total 1200 ml 825 ml # Voids 4 4 7 # Bowel Movements 0 Physical Exam GENERAL: Well developed, well nourished. No acute distress. HEENT: Jugular venous pressure is normal. CHEST: Lungs clear to auscultation anteriorly. CARDIAC: Regular rate and rhythm without S3, S4, or murmur ABDOMEN: Soft, nontender, no hepatosplenomegaly. Bowel sounds present. EXTREMITIES: No clubbing, cyanosis, edema. Laboratory Laboratory Tests Test 01/13/17 06:40 Blood Urea Nitrogen 35 MG/DL Creatinine 2.17 MG/DL Random Glucose 130 MG/DL Calcium Level 10.4 MG/DL Sodium Level 138 MEQ/L Potassium Level 2.8 MEQ/L Chloride Level 94 MEQ/L Carbon Dioxide Level 32.6 MEQ/L Anion Gap 11 MEQ/L Estimat Glomerular Filtration Rate 29 ML/MIN Assessment and Plan Problem List: (1) Congestive heart failure (CHF) ICD Codes: I50.9 - Heart failure, unspecified Status: Acute Plan: Stable overnight. Pedal edema resolved. Increasing renal indices. Patient asymptomatic. EF 20-25% by echo. Precipitating factor for the CHF possibly not receiving medications for weeks, suboptimal BP control. REC change Lasix to oral administration, f/u BMP continue hydralazine, carvedilol, no KRISHNA-I with his renal insufficiency (2) CAD (coronary artery disease) ICD Codes: I25.10 - Atherosclerotic heart disease of [place] coronary artery without angina pectoris Status: Chronic Plan: CAD status stable. No definite evidence for ACS. No recent angina symptoms. Doubt slightly elevated troponin due to ACS. EKG with no acute ST/T changes. Rec continue conservative therapy/evaluation. (3) Hypertension ICD Codes: I10 - Essential (primary) hypertension Status: Chronic Plan: BP better this morning. Rec increase carvedilol. Code Status full code Discussed Condition With patient Problem Qualifiers (1) Congestive heart failure (CHF): Qualified Codes: I50.22 - Chronic systolic (congestive) heart failure (2) CAD (coronary artery disease): Qualified Codes: I25.10 - Atherosclerotic heart disease of [place] coronary artery without angina pectoris (3) Hypertension: Qualified Codes: I10 - Essential (primary) hypertension Tru Rodgers MD Jan 13, 2017 09:42
[2017-01-13] MEDS: CARVEDILOL 6.25 MG TAB PO SCH ×2 (10:00→22:15)
[2017-01-13] MEDS ORDERED: POTASSIUM CHLORIDE 8 MEQ CONTROLLED RELEASE TAB PO ONE (16:00)
[2017-01-13] MEDS: cloNIDine HCL 0.1 MG TAB PO PRN (16:13)
--- NOTE | 2017-01-13 16:29 | HHI.PR ---
Subjective Subjective Remarks Resting in the bed Attempts to get up by himself Unaware of current situation and surroundings, drowsy at times Restless, agitated, bed alarm on (Lidya Anthony) Review of Systems Constitutional Constitutional: Fatigue, Weakness Constitutional Remarks Limited ROS due to altered mental status (Lidya Anthony) Pulmonary Respiratory: Coughing (occasional), Shortness of Breath (Lidya Anthony) Musculoskeletal MS: Weakness (generalized), Swelling (lower extremities) (Lidya Anthony) Psychiatric Psychiatric: Normal Mood (with dementia) (Lidya Anthony) Vitals/Results Vital Signs Vital Signs Date Time Temp Pulse Resp B/P (MAP) Pulse Ox O2 Delivery O2 Flow Rate FiO2 01/13/17 15:00 98.1 77 17 174/70 (104) 97 01/13/17 14:24 120/63 (82) 01/13/17 14:18 100/53 (69) 01/13/17 14:00 79 01/13/17 13:00 82 01/13/17 12:11 98.0 77 15 167/93 (117) 98 01/13/17 12:00 74 01/13/17 12:00 79 01/13/17 11:00 64 01/13/17 10:00 80 01/13/17 09:00 82 01/13/17 08:00 70 01/13/17 07:35 97.9 72 14 142/74 (96) 92 01/13/17 07:00 82 01/13/17 06:00 64 01/13/17 05:00 64 01/13/17 04:00 68 01/13/17 03:00 97.5 86 20 167/90 (115) 94 01/13/17 03:00 64 01/13/17 02:00 75 01/13/17 01:00 75 01/13/17 00:00 76 01/13/17 00:00 97.6 82 20 153/93 (113) 93 01/12/17 23:00 86 01/12/17 22:00 72 01/12/17 21:00 92 01/12/17 20:00 97.8 86 20 195/111 (139) 96 01/12/17 20:00 82 01/12/17 19:00 89 (Lidya Anthony) CBC/BMP: 01/12/17 0426 01/13/17 0640 Lab Results Laboratory Tests Test 01/13/17 06:40 Blood Urea Nitrogen 35 MG/DL Creatinine 2.17 MG/DL Random Glucose 130 MG/DL Calcium Level 10.4 MG/DL Sodium Level 138 MEQ/L Potassium Level 2.8 MEQ/L Chloride Level 94 MEQ/L Carbon Dioxide Level 32.6 MEQ/L Anion Gap 11 MEQ/L Estimat Glomerular Filtration Rate 29 ML/MIN (Lidya AnthonyP) Physical Exam General General Appearance: Pale, Anxious (Lidya Anthony) Eyes Eye Exam: Pupils Equal, Pupils Reactive (Lidya AnthonyP) Ears & Nose Ears & Nose Exam: Nasal Mucosa [place] (pale) (Lidya AnthonyP) Throat Throat Exam: Oral Mucosa [place] & Moist (pale) (Lidya AnthonyP) Neck Neck Exam: Neck Supple, Trachea Midline (Lidya AnthonyP) Pulmonary Resp Exam: Crackles (bibasally), Rhonchi (-non-audible, mild gradual improvement with diuresis), Decreased Bases, Diminished Breath Sounds (Lidya AnthonyP) Cardiology CV Exam: Regular (Lidya AnthonyP) Gastrointestinal/Abdomen GI Exam: Soft, Non-Tender, Bowel Sounds Present (Lidya AnthonyP) Genitourinary Exam: Clear Urine (intensive intake and output, continue diuresis) (Lidya AnthonyP) Musculoskeletal MS Exam: Joints Intact, Good Strength (Lidya AnthonyP) Neurologic Neuro Exam: Awake (pleasant confusion history of dementia), Speech Clear, Moving All Extremities (Lidya AnthonyP) Assessment/Plan Assessment/Plan Vital signs reviewed Labs reviewed potassium 2.8 X 2 days receiving IV and by mouth Lasix, recheck BMP in the morning 1. CHF exacerbation, elevated troponin's, rule out [place]. Appreciate cardiac consult, change Lasix to oral dosing, no KRISHNA inhibitor for now echo shows EF to be 20-25%, continue to work on BP control Monitor labs 2. Possible non-STEMI, chest pain. No acute ACS noted, continue with BP control and medical management 3. Hypertensive urgency, still uncontrolled today Increased Coreg and hydralazine by mouth, encouraged manual blood pressures to verify any increase or decrease and systolic pressure 4. Acute kidney injury, rule out chronic kidney disease replace potassium, probable secondary to his low EF, medical management, monitor electrolytes and labs 5. Dementia acute onset , agitation yesterday, continues today. Seroquel ordered 25mg. BIB, currently, drowsy, disoriented to person , place, time. Spoke with son with Dr. Polk, update given to plan of possibilities. Possible Hospice consideration if continues to decline. Decreased appetite, refuses to eat, refuses medication which is probably what's been happening before his hospital stay 6. Hypokalemia severe continues, Patient has received supplemental potassium daily since admission, will receive IV and by mouth today, recheck BMP am. Discharge planning, not ready yet, dependent on response to course of treatment over the next few days, may need palliative care or hospice consult Discussed with Dr. polk, seen on his behalf Discussed with patient and his son Discussed with nurse (Lidya Anthony) Assessment/Plan pt was seen & examined start seroquel bid / haldol prn cont BB cant use KRISHNA-I/ARB d/t advanced CKD will start nitrates & hydralazine lasix changed to po cautiously replace kcl d/w pt's son at bedside in detail , explained him pt's condition , answered all of his questions he verbalized understanding. overall prognosis is poor d/y multi organ dysfunction & dementia d/w lidya agree w above will f/u. (Edward Polk MD) Lidya Anthony Jan 13, 2017 16:29 Edward Polk MD Jan 13, 2017 19:57
[2017-01-13] MEDS: ISOSORBIDE DINITRATE 5 MG TAB PO SCH (22:15)
[2017-01-14] VITALS (24 sets, daily range): BP systolic 87–147; BP diastolic 50–67; PULSE 52–100; RESP 14–20; TEMP 96.5–98.1; O2SAT 94–98
[2017-01-14] MEDS: ISOSORBIDE DINITRATE 5 MG TAB PO SCH (06:26)
[2017-01-14] MEDS: hydrALAZINE HCL 25 MG TAB PO SCH ×3 (06:26→22:22)
[2017-01-14] MEDS: HEPARIN SODIUM - SQ 10,000 UNITS/ML VIAL SQ SCH ×2 (06:26→17:41)
[2017-01-14 08:02] LABS: BICARBONATE 32.6 MEQ/L (21.0-32.0)
[2017-01-14 08:07] LABS: POTASSIUM 2.6 MEQ/L (3.5-5.1)
--- NOTE | 2017-01-14 08:33 | PD.CARD.PN ---
Subjective Subjective Remarks Denies CP, dyspnea, dizziness, nausea, abdominal pain, palpitations. Objective Medications Item Value Date Time Furosemide 40 mg 01/14/17 0900 (Lasix) DAILY/PO Amlodipine 5 mg 01/14/17 0900 Besylate DAILY/PO (Norvasc) Isosorbide 10 mg 01/13/17 2200 Dinitrate Q8HR/PO 01/14/17 0626 (Isordil) Clonidine 0.1 mg 01/13/17 2100 (Catapres) Q12HR/PO 01/13/17 221 Carvedilol 6.25 mg 01/13/17 1100 (Coreg) BID/PO 01/13/172214 Hydralazine HCl 50 mg 01/12/17 1400 (Apresoline) Q8HR/PO 01/14/17 06 Aspirin 325 mg 01/12/17 0900 (Aspirin) DAILY/PO 01/13/17 0900 Potassium Chloride 20 meq 01/11/17 0900 (KCl) Q12HR/PO 01/13/172214 Vital Signs / I&O Vital Signs Date Time Temp Pulse Resp B/P (MAP) Pulse Ox O2 Delivery O2 Flow Rate FiO2 01/14/17 03:00 96.5 62 20 147/52 (83) 98 01/14/17 00:00 96.5 62 20 87/53 (64) 96 01/13/17 19:00 96.8 89 18 191/94 (126) 95 01/13/17 18:06 82 01/13/17 17:25 129/72 (91) 01/13/17 17:00 56 01/13/17 16:00 72 01/13/17 15:00 75 01/13/17 15:00 98.1 77 17 174/70 (104) 97 01/13/17 14:24 120/63 (82) 01/13/17 14:18 100/53 (69) 01/13/17 14:00 79 01/13/17 13:00 82 01/13/17 12:11 98.0 77 15 167/93 (117) 98 01/13/17 12:00 74 01/13/17 12:00 79 01/13/17 11:00 64 01/13/17 10:00 80 01/13/17 09:00 82 I/O 01/13/17 01/13/17 01/13/17 01/14/17 01/14/17 01/14/17 07:00 15:00 23:00 07:00 15:00 23:00 Intake Total 480 ml 1000 ml 480 ml Output Total 825 ml 400 ml Balance -345 ml 600 ml 480 ml Intake Oral 480 ml 900 ml 480 ml IV Total 100 ml Output Urine Total 825 ml 400 ml # Voids 7 4 5 Physical Exam GENERAL: Well developed, well nourished. No acute distress. HEENT: Jugular venous pressure is normal. CHEST: Lungs clear to auscultation anteriorly. CARDIAC: Regular rate and rhythm without S3, S4, or murmur ABDOMEN: Soft, nontender, no hepatosplenomegaly. Bowel sounds present. EXTREMITIES: No clubbing, cyanosis, edema. Laboratory Laboratory Tests Test 01/14/17 06:50 Blood Urea Nitrogen 36 MG/DL Creatinine 2.23 MG/DL Random Glucose 106 MG/DL Calcium Level 9.6 MG/DL Sodium Level 139 MEQ/L Potassium Level 2.6 MEQ/L Chloride Level 96 MEQ/L Carbon Dioxide Level 32.6 MEQ/L Anion Gap 10 MEQ/L Estimat Glomerular Filtration Rate 28 ML/MIN Assessment and Plan Problem List: (1) Congestive heart failure (CHF) ICD Codes: I50.9 - Heart failure, unspecified Status: Acute Plan: Stable overnight. Continued rise in creatinine. Patient asymptomatic. EF 20-25% by echo. Precipitating factor for the CHF possibly not receiving medications for weeks, suboptimal BP control. REC hold furosemide continue hydralazine, carvedilol, no KRISHNA-I with his renal insufficiency replete K (2) CAD (coronary artery disease) ICD Codes: I25.10 - Atherosclerotic heart disease of [place] coronary artery without angina pectoris Status: Chronic Plan: CAD status stable. No definite evidence for ACS. No recent angina symptoms. Doubt slightly elevated troponin due to ACS. EKG with no acute ST/T changes. Rec continue conservative therapy/evaluation. (3) Hypertension ICD Codes: I10 - Essential (primary) hypertension Status: Chronic Plan: Widely fluctuating BP's. Rec continue to monitor. Code Status full code Discussed Condition With patient Problem Qualifiers (1) Congestive heart failure (CHF): Qualified Codes: I50.22 - Chronic systolic (congestive) heart failure (2) CAD (coronary artery disease): Qualified Codes: I25.10 - Atherosclerotic heart disease of [place] coronary artery without angina pectoris (3) Hypertension: Qualified Codes: I10 - Essential (primary) hypertension Tru Rodgers MD Jan 14, 2017 08:32
[2017-01-14] MEDS: HALOPERIDOL LACTATE 5 MG/ML AMP IM PRN ×2 (08:57→17:40)
[2017-01-14] MEDS: cloNIDine HCL 0.1 MG TAB PO SCH ×3 (09:00→22:18)
[2017-01-14] MEDS ORDERED: FUROSEMIDE 40 MG TAB PO SCH (09:00)
[2017-01-14] MEDS ORDERED: POTASSIUM CHLOR 20 MEQ PREMIX 100 ML IV ONE (10:15)
[2017-01-14] MEDS ORDERED: POTASSIUM CHLORIDE 20 MEQ CONTROLLED RELEASE TAB PO ONE (10:15)
[2017-01-14] MEDS: amLODIPine BESYLATE 5 MG TAB PO SCH (11:00)
[2017-01-14] MEDS: SODIUM CHLORIDE 0.9% FLUSH 10 ML FLUSH IV FLUSH SCH ×2 (11:01→21:00)
[2017-01-14] MEDS: FAMOTIDINE 20 MG TAB PO SCH ×2 (11:01→22:18)
[2017-01-14] MEDS: QUEtiapine FUMARATE 25 MG TAB PO SCH ×2 (11:01→12:00)
[2017-01-14] MEDS: CARVEDILOL 6.25 MG TAB PO SCH ×2 (11:01→22:19)
[2017-01-14] MEDS: POTASSIUM CHLORIDE 20 MEQ CONTROLLED RELEASE TAB PO SCH ×2 (11:01→22:18)
[2017-01-14] MEDS: ASPIRIN 325 MG TAB PO SCH (11:07)
[2017-01-14] MEDS: ISOSORBIDE DINITRATE 10 MG TAB PO SCH ×2 (13:51→22:22)
--- NOTE | 2017-01-14 17:07 | HHI.PR ---
Subjective History of Present Illness Remained somewhat agitated, in 2 points restraints Still refusing to take pills, nurses have to hide them in his food No chest pain Denies shortness Leg swelling Nearly resolved No vomiting No diarrhea Offers no other complaints Review of Systems Constitutional Constitutional: Fatigue, Weakness Pulmonary Respiratory: Coughing (occasional), Shortness of Breath Musculoskeletal MS: Weakness (generalized), Swelling (lower extremities) Psychiatric Psychiatric: Normal Mood (with dementia) Vitals/Results Vital Signs Vital Signs Date Time Temp Pulse Resp B/P (MAP) Pulse Ox O2 Delivery O2 Flow Rate FiO2 01/14/17 16:00 71 01/14/17 15:45 68 01/14/17 15:45 97.4 67 20 135/67 (89) 97 01/14/17 14:06 68 01/14/17 13:00 52 01/14/17 12:00 89 01/14/17 11:11 98.1 77 17 118/65 (82) 96 01/14/17 11:00 73 01/14/17 08:00 90 01/14/17 07:00 68 01/14/17 06:00 56 01/14/17 05:00 58 01/14/17 04:00 55 01/14/17 03:00 72 01/14/17 03:00 96.5 62 20 147/52 (83) 98 01/14/17 02:00 60 01/14/17 01:00 62 01/14/17 00:06 66 01/14/17 00:00 96.5 62 20 87/53 (64) 96 01/13/17 23:00 84 01/13/17 22:00 80 01/13/17 21:00 84 01/13/17 20:01 95 01/13/17 19:00 66 01/13/17 19:00 96.8 89 18 191/94 (126) 95 01/13/17 18:06 82 01/13/17 17:25 129/72 (91) CBC/BMP: 01/12/17 0426 01/14/17 0650 Lab Results Laboratory Tests Test 01/14/17 06:50 Blood Urea Nitrogen 36 MG/DL Creatinine 2.23 MG/DL Random Glucose 106 MG/DL Calcium Level 9.6 MG/DL Sodium Level 139 MEQ/L Potassium Level 2.6 MEQ/L Chloride Level 96 MEQ/L Carbon Dioxide Level 32.6 MEQ/L Anion Gap 10 MEQ/L Estimat Glomerular Filtration Rate 28 ML/MIN Physical Exam General General Appearance: Pale, Anxious Appearance Remarks Elderly male in 2 point restraints, Eyes Eye Exam: Pupils Equal, Sclera White Ears & Nose Ears & Nose Exam: Nasal Mucosa [place] (pale) Throat Throat Exam: Oral Mucosa [place] & Moist (pale) Neck Neck Exam: Neck Supple, Trachea Midline Pulmonary Resp Exam: Breath Sounds Equal, No Distress Cardiology CV Exam: Regular, Normal Sinus Rhythm Gastrointestinal/Abdomen GI Exam: Soft, Non-Tender, Bowel Sounds Present Musculoskeletal MS Exam: Joints Intact, Normal Tone Integumentary Skin Exam: Warm, Dry Extremeties Extremities Exam: Trace Edema Neurologic Neuro Exam: Alert, Awake (pleasant confusion history of dementia), Speech Clear , Moving All Extremities Neuro Remarks Remain uncooperative, questioning everything, wanted to go home, still refusing to take his medicines VTE Prophylaxis VTE Prophylaxis Meds: Heparin PUD Prophylasis PUD Remarks Pepcid Assessment/Plan Assessment/Plan Assessment . Acute on chronic systolic CHF exacerbation, elevated troponin's, rule out [place]. . Possible non-STEMI, chest pain. . Ischemic cardiomyopathy, EF 20 to 25% . Status post Hypertensive urgency, . Acute kidney injury, with chronic kidney disease stage, worsening renal function . Hypokalemia . Dementia . Agitation/uncooperative behavior . Refusing to eat Plan Fluid restriction Agree with holding Lasix, due to worsening renal function Continue beta vishnu Continue nitrates and hydralazine Control blood pressure monitor renal function Replace potassium cautiously, avoid hyperkalemia Increase Seroquel to 50 twice daily to control agitation, when necessary held Physical restraints when necessary Encourage oral intake Pepcid for GI protection Subcutaneous heparin for DVT prophylaxis We'll consult palliative care team to help establish goals of care Overall prognosis poor due to multiple organ dysfunction/and underlying dementia with agitation A.m. labs Discussed with RN Will follow Edward Polk MD Jan 14, 2017 17:07
[2017-01-14 22:09] LABS: BICARBONATE 30.4 MEQ/L (21.0-32.0)
[2017-01-14 22:27] LABS: POTASSIUM 2.8 MEQ/L (3.5-5.1)
[2017-01-15] VITALS (26 sets, daily range): BP systolic 97–165; BP diastolic 56–81; PULSE 50–88; RESP 16–20; TEMP 97.4–98.3; O2SAT 94–98
[2017-01-15] MEDS: POTASSIUM CHLOR 20 MEQ PREMIX 100 ML IV SCH ×3 (02:30→08:54)
[2017-01-15] MEDS: HALOPERIDOL LACTATE 5 MG/ML AMP IM PRN (06:06)
[2017-01-15] MEDS: ISOSORBIDE DINITRATE 10 MG TAB PO SCH ×3 (06:34→22:07)
[2017-01-15] MEDS: hydrALAZINE HCL 25 MG TAB PO SCH ×3 (06:34→22:07)
[2017-01-15] MEDS: HEPARIN SODIUM - SQ 10,000 UNITS/ML VIAL SQ SCH ×2 (06:35→17:15)
[2017-01-15 07:18] LABS: BICARBONATE 31.4 MEQ/L (21.0-32.0)
[2017-01-15 07:48] LABS: POTASSIUM 3.5 MEQ/L (3.5-5.1)
--- NOTE | 2017-01-15 07:57 | PD.CARD.PN ---
Subjective Subjective Remarks Denies dyspnea, CP, dizziness, palpitations. Slept well. Objective Medications Item Value Date Time Potassium Chloride 100 ml @ 50 mls/hr 01/15/17 0230 Isosorbide 10 mg 01/14/17 1400 Dinitrate Q8HR/PO 01/15/17 0634 (Isordil) Amlodipine 5 mg 01/14/17 0900 Besylate DAILY/PO 01/14/17 1100 (Norvasc) Clonidine 0.1 mg 01/13/17 2100 (Catapres) Q12HR/PO 01/14/17 2218 Carvedilol 6.25 mg 01/13/17 1100 (Coreg) BID/PO 01/14/17 2219 Hydralazine HCl 50 mg 01/12/17 1400 (Apresoline) Q8HR/PO 01/15/17 0634 Aspirin 325 mg 01/12/17 0900 (Aspirin) DAILY/PO 01/14/17 1107 Potassium Chloride 20 meq 01/11/17 0900 (KCl) Q12HR/PO 01/14/17 2218 Heparin Sodium 5,000 units 01/11/17 0515 (Porcine) Q12H/SQ 01/15/17 0635 (Heparin Inj) Vital Signs / I&O Vital Signs Date Time Temp Pulse Resp B/P (MAP) Pulse Ox O2 Delivery O2 Flow Rate FiO2 01/15/17 07:01 54 01/14/17 18:21 71 01/14/17 17:45 79 01/14/17 16:00 71 01/14/17 15:45 68 01/14/17 15:45 97.4 67 20 135/67 (89) 97 01/14/17 14:06 68 01/14/17 13:00 52 01/14/17 12:00 89 01/14/17 11:11 98.1 77 17 118/65 (82) 96 01/14/17 11:00 73 01/14/17 08:00 90 I/O 01/14/17 01/14/17 01/14/17 01/15/17 01/15/17 01/15/17 07:00 15:00 23:00 07:00 15:00 23:00 Intake Total 480 ml 580 ml Balance 480 ml 580 ml Intake Oral 480 ml 480 ml IV Total 100 ml # Voids 5 3 # Bowel Movements 2 Physical Exam GENERAL: Well developed, well nourished. No acute distress. HEENT: Jugular venous pressure is normal. CHEST: Lungs clear to auscultation anteriorly. CARDIAC: Regular rate and rhythm without S3, S4, or murmur ABDOMEN: Soft, nontender, no hepatosplenomegaly. Bowel sounds present. EXTREMITIES: No clubbing, cyanosis, edema. Laboratory Laboratory Tests Test 01/14/17 20:38 01/15/17 06:01 Blood Urea Nitrogen 37 MG/DL 40 MG/DL Creatinine 2.42 MG/DL 2.43 MG/DL Random Glucose 110 MG/DL 96 MG/DL Calcium Level 9.9 MG/DL 10.0 MG/DL Sodium Level 139 MEQ/L 141 MEQ/L Potassium Level 2.8 MEQ/L 3.5 MEQ/L Chloride Level 98 MEQ/L 100 MEQ/L Carbon Dioxide Level 30.4 MEQ/L 31.4 MEQ/L Anion Gap 11 MEQ/L 10 MEQ/L Estimat Glomerular Filtration Rate 25 ML/MIN 25 ML/MIN Assessment and Plan Problem List: (1) Congestive heart failure (CHF) ICD Codes: I50.9 - Heart failure, unspecified Status: Acute Plan: Stable overnight. Acute CHF appears resolved. Renal indices stable. Patient asymptomatic. EF 20-25% by echo. Precipitating factor for the CHF possibly not receiving medications for weeks, suboptimal BP control. REC continue hydralazine, carvedilol, no KRISHNA-I with his renal insufficiency; resume furosemide OK for discharge from my standpoint (2) CAD (coronary artery disease) ICD Codes: I25.10 - Atherosclerotic heart disease of [place] coronary artery without angina pectoris Status: Chronic Plan: CAD status stable. No definite evidence for ACS. No recent angina symptoms. Doubt slightly elevated troponin due to ACS. EKG with no acute ST/T changes. Rec continue conservative therapy/evaluation. (3) Hypertension ICD Codes: I10 - Essential (primary) hypertension Status: Chronic Plan: Mostly normotensive. Rec continue to monitor. Continue multidrug regimen. Code Status full code Discussed Condition With patient Problem Qualifiers (1) Congestive heart failure (CHF): Qualified Codes: I50.22 - Chronic systolic (congestive) heart failure (2) CAD (coronary artery disease): Qualified Codes: I25.10 - Atherosclerotic heart disease of [place] coronary artery without angina pectoris (3) Hypertension: Qualified Codes: I10 - Essential (primary) hypertension Tru Rodgers MD Jan 15, 2017 07:57
[2017-01-15] MEDS: POTASSIUM CHLORIDE 20 MEQ CONTROLLED RELEASE TAB PO SCH (08:52)
[2017-01-15] MEDS: ASPIRIN 325 MG TAB PO SCH (08:52)
[2017-01-15] MEDS: CARVEDILOL 6.25 MG TAB PO SCH ×2 (08:52→22:07)
[2017-01-15] MEDS: cloNIDine HCL 0.1 MG TAB PO SCH (08:53)
[2017-01-15] MEDS: QUEtiapine FUMARATE 25 MG TAB PO SCH ×2 (08:53→12:00)
[2017-01-15] MEDS: FAMOTIDINE 20 MG TAB PO SCH ×2 (08:53→22:06)
[2017-01-15] MEDS: amLODIPine BESYLATE 5 MG TAB PO SCH (08:53)
[2017-01-15] MEDS: SODIUM CHLORIDE 0.9% FLUSH 10 ML FLUSH IV FLUSH SCH ×2 (08:54→22:06)
--- NOTE | 2017-01-15 11:36 | HHI.PR ---
Subjective Subjective Remarks Patient is somnolent Barely opens eyes to voice and touch Blood pressure 70/49, was given by mouth meds this morning Blood pressure rechecked while undersigned in room, up to 90s. NS Bolus in progress Sinus bradycardia on the monitor Sats 98% on room air Unable to obtain ROS Review of Systems Constitutional Constitutional: Fatigue, Weakness Pulmonary Respiratory: Coughing (occasional), Shortness of Breath Musculoskeletal MS: Weakness (generalized), Swelling (lower extremities) Psychiatric Psychiatric: Normal Mood (with dementia) Vitals/Results Vital Signs Vital Signs Date Time Temp Pulse Resp B/P (MAP) Pulse Ox O2 Delivery O2 Flow Rate FiO2 01/15/17 11:00 97.6 62 17 97/57 (70) 98 01/15/17 11:00 52 01/15/17 10:00 70 01/15/17 09:00 61 01/15/17 08:00 62 01/15/17 08:00 62 01/15/17 08:00 97.4 60 16 130/68 (88) 95 01/15/17 07:01 54 01/15/17 06:00 58 01/15/17 05:00 74 01/15/17 04:00 54 01/15/17 03:00 97.4 55 16 135/77 (96) 96 01/15/17 03:00 53 01/15/17 02:00 62 01/15/17 01:00 64 01/15/17 00:00 59 01/14/17 23:00 62 01/14/17 23:00 97.0 73 14 120/50 (73) 94 01/14/17 22:00 70 01/14/17 21:00 88 01/14/17 20:00 80 01/14/17 19:00 100 01/14/17 19:00 97.8 69 14 119/62 (81) 96 01/14/17 18:21 71 01/14/17 17:45 79 01/14/17 16:00 71 01/14/17 15:45 68 01/14/17 15:45 97.4 67 20 135/67 (89) 97 01/14/17 14:06 68 01/14/17 13:00 52 01/14/17 12:00 89 CBC/BMP: 01/12/17 0426 01/15/17 0601 Lab Results Laboratory Tests Test 01/14/17 20:38 01/15/17 06:01 Blood Urea Nitrogen 37 MG/DL 40 MG/DL Creatinine 2.42 MG/DL 2.43 MG/DL Random Glucose 110 MG/DL 96 MG/DL Calcium Level 9.9 MG/DL 10.0 MG/DL Sodium Level 139 MEQ/L 141 MEQ/L Potassium Level 2.8 MEQ/L 3.5 MEQ/L Chloride Level 98 MEQ/L 100 MEQ/L Carbon Dioxide Level 30.4 MEQ/L 31.4 MEQ/L Anion Gap 11 MEQ/L 10 MEQ/L Estimat Glomerular Filtration Rate 25 ML/MIN 25 ML/MIN Physical Exam General General Appearance: Well Developed, No Acute Distress, Comfortable, Pale, Sleeping (lethargic) Eyes Eye Exam: Pupils Equal, Pupils Reactive Ears & Nose Ears & Nose Exam: Nasal Mucosa [place] Throat Throat Exam: Oral Mucosa [place] & Moist Neck Neck Exam: Neck Supple, Trachea Midline Pulmonary Resp Exam: Breath Sounds Equal, No Distress, Poor Inspiratory Effort Cardiology CV Exam: Regular, Normal Sinus Rhythm Gastrointestinal/Abdomen GI Exam: Soft, Non-Tender, Bowel Sounds Present, Non-Distended Musculoskeletal MS Exam: Joints Intact, Normal Tone Integumentary Skin Exam: Warm, Dry Extremeties Extremities Exam: Pedal Pulses Palpable, Trace Edema Neurologic Neuro Remarks Lethargic VTE Prophylaxis VTE Prophylaxis Meds: Heparin Assessment/Plan Assessment/Plan Assessment . Acute on chronic systolic CHF exacerbation, elevated troponin's, rule out [place]. . Possible non-STEMI, chest pain. . Ischemic cardiomyopathy, EF 20 to 25% . Status post Hypertensive urgency, . Acute kidney injury, with chronic kidney disease stage, worsening renal function . Hypokalemia . Dementia . Agitation/uncooperative behavior . Refusing to eat Plan CHF symptoms improve Cardiology has resume Lasix, hold at this time due to hypotension Continue with beta vishnu, nitrates, hydralazine Decrease hydralazine to 25 mg by mouth every 8 Discontinue clonidine, noted with bradycardia and hypotension Hypotensive this morning, blood pressure 70/49, normal saline bolus 250 cc in progress Continue with fluid restriction Has been clear for discharge by cardiology At times agitated requiring restraints Continue with Seroquel 50 mg by mouth twice a day Renal function marginal Replace potassium Nonoliguric Initially with uncontrolled hypertension, now hypotensive. Medications have been adjusted. Continue to monitor blood pressure closely Pepcid for GI protection Subcutaneous heparin for DVT prophylaxis Physical therapy for evaluation Case management for discharge planning, patient will likely need rehabilitation placement if family is agreeable Overall poor prognosis due to multiorgan dysfunction, underlying dementia, advanced in age Palliative care consultation pending Repeat labs in the morning Condition guarded Discussed with RN Discussed with attending This patient was seen by myself and Dr. Polk, this note is written on his behalf Ashli Gaffney Jan 15, 2017 11:36
[2017-01-15] MEDS ORDERED: POTASSIUM CHLORIDE 25 MEQ EFFERVESCENT TAB PO ONE (12:00)
[2017-01-15] MEDS ORDERED: SODIUM CHLOR 0.9% 250 ML INJ 250 ML IV ONE (13:00)
[2017-01-15 13:59] LABS: BICARBONATE 27.3 MEQ/L (21.0-32.0); MAGNESIUM 2.2 MG/DL (1.5-2.5); POTASSIUM 3.8 MEQ/L (3.5-5.1)
--- NOTE | 2017-01-15 14:24 | PD.CONS ---
Consult Service Palliative Care Consult Requested By Dr. Polk Primary Care Physician Shiva Stubbs MD, PhD Reason for Consultation a. To assist with evaluation and management of symptoms including: Agitation and shortness of breath. b. To assist medical decision maker(s) with: better understanding of current medical conditions; weighing benefits/burdens of medical treatment options; making medical treatment decisions. . (Carolina Ray) HPI History of Present Illness Mr. Campuzano [age]-year-old male with a medical history significant for dementia, hypertension, chronic kidney failure, CAD and squamous cell carcinoma. Patient arrived to ED on 01/11/17 after family called EMS secondary to worsening dementia/failure to thrive. As per family, patient has not been taking his medications and his symptoms of confusion and agitation worsened. ED workup to include UA which was negative for ketones or leukocytes. Head CT negative for acute findings. Chest x-ray significant for congestive heart failure. BUN/creatinine 42/1.71. Troponin 0.11, BNP 2534. Echocardiogram showing left ventricular systolic function severely reduced with an estimated EF of 20-25%. EKG revealing ST-T changes. Patient was admitted for further management. Cardiology was consulted for evaluation of CHF. Conservative management recommended given poor functional status, dementia and advanced age. Clinical course complicated by agitation requiring Seroquel and 4 point restraints and an episode of hypotension on 01/15/17 with BP 70/49 requiring NS bolus. Patient seen in his room, he was resting in bed in no acute distress. Patient alert to self, was able to tell me his name but not his age. Slurred speech, confused as to place, time and situation. Patient was unable to tell me why he was here at the hospital. Unable to secure ROS secondary to clinical condition. Patient afebrile, bradycardic with heart rate in the mid 50s. Currently tolerating O2 via nasal cannula at 2 L. Laboratory workup today revealing worsening kidney function with BUN/creatinine 40/2.43. Hemoglobin stable at 14.6. No additional imaging for review. Telephone conversation with patient's son Kev Campuzano who is acting as healthcare surrogate decision maker. Reviewed patient's past medical history, events leading to these hospitalization, clinical course and current treatment plan. Son tells me that family is no longer able to care for patient at home given increased symptoms to include worsening confusion, agitation and shortness of breath. Family would like for patient to be [facility] a [facility] Son reports that they are in the process of completing applications. Discussed risks, benefits and limitations of CPR, intubation and mechanical ventilation given patient's overall prognosis with multiple ongoing comorbidities, advanced age and physical deconditioning. Son electing alternative code/cardiac code only with chest compressions, ACLS drugs and defibrillation. No intubation/mechanical ventilation. Son was unable to continue with goals of care conversation via phone, tentative in-person meeting this Saturday or given his complicated work schedule. Case discussed with BRANDIN Larson. . Function/Cognitive Trajectory Patient with progressive dementia. Residing with daughter Dyan prior to this hospitalization. Requiring some assistance with ADLs. Patient with worsening confusion/agitation. . (Carolina Ray) Review of Systems ROS Limitations: Clinical Condition, Altered Mental Status, Poor Historian Constitutional: COMPLAINS OF: Change in appetite, Generalized weakness Eyes: DENIES: Eye inflammation, Eye pain Ears, nose, mouth, throat: DENIES: Nasal discharge, Oral lesions, Running Nose , Epistaxis Respiratory: COMPLAINS OF: Shortness of breath, DENIES: Cough, Sputum production Cardiovascular: DENIES: Lower Extremity Edema Gastrointestinal: DENIES: Diarrhea, Nausea, Vomiting, Difficulty Swallowing Genitourinary: COMPLAINS OF: Urinary incontinence Musculoskeletal: COMPLAINS OF: Decreased range of motion Integumentary: COMPLAINS OF: Abnormal pigmentation, Pruritus, Rash Hematologic/Lymphatics: COMPLAINS OF: Bruising Immunologic/Allergic: COMPLAINS OF: Urticaria Neurologic: COMPLAINS OF: Abnormal gait, Poor Balance Psychiatric: COMPLAINS OF: Anxiety, Confusion, Agitation Other ROS: Limited ROS secondary to patient's clinical condition, confusion. ROS obtained from medical records, patient's family and clinical observation. . (Carolina Ray) Past Family Social History Coded Allergies: No Known Allergies (Unverified , 01/11/17) Past Medical History Dementia Hypertension Hyperlipidemia Coronary artery disease status post CABG x 5 vessels in 1979 with redo bypass in 1993 x 3 vessels. 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 Past Surgical History Coronary artery bypass Bilateral knee arthroplasty Skin cancer excision to left lower extremity . Reported Medications Unable to secure reported medications. Family to bring list from home. . Current Medications Medications (Trade) Dose Ordered Sig/Arnulfo Route Start Time Stop Time Status Last Admin (NS Flush) 2 ml UNSCH PRN IV FLUSH 01/11/17 05:15 (NS Flush) 2 ml BID IV FLUSH 01/11/17 09:00 01/15/17 08:54 (Tylenol) 650 mg Q4H PRN PO 01/11/17 05:15 (Zofran Inj) 4 mg Q6H PRN IVP 01/11/17 05:15 (Heparin Inj) 5,000 units Q12H SQ 01/11/17 05:15 01/15/17 06:35 (Narcan Inj) 0.4 mg UNSCH PRN IV PUSH 01/11/17 05:15 (Milk Of Magnesia Liq) 30 ml Q12H PRN PO 01/11/17 05:15 (Senokot) 17.2 mg Q12H PRN PO 01/11/17 05:15 (Dulcolax Supp) 10 mg DAILY PRN RECTAL 01/11/17 05:15 (Lactulose Liq) 30 ml DAILY PRN PO 01/11/17 05:15 (Aspirin) 325 mg DAILY PO 01/12/17 09:00 01/15/17 08:52 (Nitrostat Sl) 0.4 mg Q5M PRN SL 01/11/17 05:15 (Pepcid) 10 mg BID PO 01/11/17 09:00 01/15/17 08:53 (Catapres) 0.1 mg Q6H PRN PO 01/11/17 05:15 01/13/17 16:13 (KCl) 20 meq Q12HR PO 01/11/17 09:00 01/15/17 08:52 (Apresoline) 25 mg Q4HR PRN PO 01/11/17 12:00 01/12/17 18:42 (Haldol Inj) 5 mg Q4H PRN IM 01/12/17 16:15 01/15/17 06:06 (Coreg) 6.25 mg BID PO 01/13/17 11:00 01/15/17 08:52 (Lasix) 40 mg DAILY PO 01/14/17 09:00 Future hold (Norvasc) 5 mg DAILY PO 01/14/17 09:00 01/15/17 08:53 (Isordil) 10 mg Q8HR PO 01/14/17 14:00 01/15/17 06:34 (SEROquel) 50 mg BID@09,12 PO 01/15/17 09:00 01/15/17 08:53 (Apresoline) 25 mg Q8HR PO 01/15/17 14:00 Family History Son diagnosed with renal cell carcinoma. . Substance Use Tobacco: Denies. Alcohol: Denies. Prescription med abuse: Denies. Illicits: Denies. . Psychosocial History Patient originally from [place]. He is , he reports having 6 children. Pt served in the . Spiritual/Cultural Factors No mu-ism affiliation. . (Carolina Ray) Living Will: Copy in medical record Health Care Surrogate: Copy in medical record Durable Power of Food Court Team Member: Copy in medical record Date completed: 06/02/2009. Health Care Surrogate(s): Patient elected kevin Campuzano as healthcare surrogate decision-maker, first alternate surrogate kevin Campuzano. Second alternate surrogate his daughter Lea Salas. . Documented care wishes: Living well with standard verbiage as it pertains to terminal condition, end- stage condition or persistent vegetative state. Patient electing the nutrition be withheld withdrawal when the application of such procedures would only serve to prolong artificially the process of dying. . Family/friends goals: Continue current conservative management short of no intubation/mechanical ventilation. Family is goal is to discharge to long-term facility. . Ethical and Legal Issues Patient unable to participating medical decision-making given dementia. Kevin Angulo acting as healthcare surrogate decision maker. . (Carolina Ray) Physical Exam Vital Signs Date Time Temp Pulse Resp B/P (MAP) Pulse Ox O2 Delivery O2 Flow Rate FiO2 01/15/17 12:00 53 01/15/17 11:00 53 01/15/17 11:00 97.6 62 17 97/57 (70) 98 01/15/17 11:00 52 01/15/17 10:00 70 01/15/17 09:00 61 01/15/17 08:00 62 01/15/17 08:00 62 01/15/17 08:00 97.4 60 16 130/68 (88) 95 01/15/17 07:01 54 01/15/17 06:00 58 01/15/17 05:00 74 01/15/17 04:00 54 01/15/17 03:00 97.4 55 16 135/77 (96) 96 01/15/17 03:00 53 01/15/17 02:00 62 01/15/17 01:00 64 01/15/17 00:00 59 01/14/17 23:00 62 01/14/17 23:00 97.0 73 14 120/50 (73) 94 01/14/17 22:00 70 01/14/17 21:00 88 01/14/17 20:00 80 01/14/17 19:00 100 01/14/17 19:00 97.8 69 14 119/62 (81) 96 01/14/17 18:21 71 01/14/17 17:45 79 01/14/17 16:00 71 01/14/17 15:45 68 01/14/17 15:45 97.4 67 20 135/67 (89) 97 01/14/17 14:06 68 01/15/17 01/16/17 18:59 06:59 Intake Total 196 ml Balance 196 ml IV Total 196 ml Exam CONSTITUTIONAL/GENERAL: This is an thin, elderly male in moderate distress/ anxious. TUBES/LINES/DRAINS: PIV's, soft wrist and ankle restraints. SKIN: Pale. No jaundice. Ecchymoses on upper extremities.Skin temperature appropriate. Not diaphoretic. Multiple skin tears and scabs on upper and lower extremities. Patches of dry/erythematous skin on bilateral forearms and hands. HEAD: Atraumatic. Normocephalic. EYES: Pupils equal and round and reactive. No scleral icterus. No injection or drainage. Fundi not examined. ENT: Hearing appears normal. Nose without bleeding or purulent drainage. Moist oral mucosa. NECK: Trachea midline. Supple, nontender. CARDIOVASCULAR: Regular rate and rhythm. Peripheral pulses symmetric. RESPIRATORY/CHEST: Symmetric, unlabored respirations. Clear to auscultation, diminished. Breath sounds equal bilaterally. GASTROINTESTINAL: Abdomen soft, non-tender, nondistended. No guarding. Bowel sounds present. GENITOURINARY: Without palpable bladder distension. Adult briefs in place. MUSCULOSKELETAL: Extremities without clubbing, cyanosis, or edema. No mottling or clubbing. NEUROLOGICAL: Alert to self. Confused as to place, time and situation. Baseline dementia. Moves all extremities. PSYCHIATRIC: Intermittent episodes of restlessness/agitation . (Carolina Ray) Diagnostic Tests Laboratory Laboratory Tests Test 01/13/17 06:40 01/14/17 06:50 01/14/17 20:38 01/15/17 06:01 Blood Urea Nitrogen 35 MG/DL (7-18) 36 MG/DL (7-18) 37 MG/DL (7-18) 40 MG/DL (7-18) Creatinine 2.17 MG/DL (0.60-1.30) 2.23 MG/DL (0.60-1.30) 2.42 MG/DL (0.60-1.30) 2.43 MG/DL (0.60-1.30) Random Glucose 130 MG/DL (74-106) 106 MG/DL (74-106) 110 MG/DL (74-106) 96 MG/DL (74-106) Calcium Level 10.4 MG/DL (8.5-10.1) 9.6 MG/DL (8.5-10.1) 9.9 MG/DL (8.5-10.1) 10.0 MG/DL (8.5-10.1) Sodium Level 138 MEQ/L (136-145) 139 MEQ/L (136-145) 139 MEQ/L (136-145) 141 MEQ/L (136-145) Potassium Level 2.8 MEQ/L (3.5-5.1) 2.6 MEQ/L (3.5-5.1) 2.8 MEQ/L (3.5-5.1) 3.5 MEQ/L (3.5-5.1) Chloride Level 94 MEQ/L (98-107) 96 MEQ/L (98-107) 98 MEQ/L (98-107) 100 MEQ/L (98-107) Carbon Dioxide Level 32.6 MEQ/L (21.0-32.0) 32.6 MEQ/L (21.0-32.0) 30.4 MEQ/L (21.0-32.0) 31.4 MEQ/L (21.0-32.0) Anion Gap 11 MEQ/L (5-15) 10 MEQ/L (5-15) 11 MEQ/L (5-15) 10 MEQ/L (5-15) Estimat Glomerular Filtration Rate 29 ML/MIN (>89) 28 ML/MIN (>89) 25 ML/MIN (>89) 25 ML/MIN (>89) Test 01/15/17 13:10 (Carolina Ray) Result Diagram: 01/12/17 0426 01/15/17 0601 Imaging Last Impressions Head CT 01/11/17329 Signed Impressions: Service Date/Time: Wednesday, January 11, 2017 03:44 - CONCLUSION: 1. No acute findings. Mild white matter ischemic changes. Kev Bobby MD Chest X-Ray 01/11/17329 Signed Impressions: Service Date/Time: Wednesday, January 11, 2017 03:42 - CONCLUSION: 1. Mild congestive heart failure. Kev Bobby MD (Carolina Ray) Patient/Family Conference Present at Family Conference: Son Kev Campuzano. . Family Conference Time (mins): 32 Family Conference Location: Telephone Issues Discussed: * Palliative care role, purpose, approach * Additional medical, psychosocial, and spiritual history * Patients general health, functional status, and cognitive changes in the months leading up to the current hospitalization * Patient/family understanding of the current medical problems -multisystem organ dysfunction * Patient/family understanding of prognosis -guarded prognosis * Patients goals of care as best understood from advance directives and/or conversations and/or values * Current medical treatment options and benefits/burdens of those options * Questions answered to the best of my ability * Palliative care contact information provided * Hospice philosophy and benefits * Risks, benefits and limitations of CPR, intubation and mechanical ventilation given patient's condition . (Carolina Ray) Assessment and Plan Disease Oriented Problem List: (1) Acute exacerbation of CHF (congestive heart failure) (2) Non-ST elevated myocardial infarction (non-STEMI) (3) CAD (coronary artery disease) (4) Ischemic cardiomyopathy (5) Dementia (6) Acute on chronic kidney failure (7) Hypertension (8) Physical deconditioning Symptom Scale: (1) Restlessness and agitation 0-10 Scale: Unable to quantify Comment: Baseline dementia. Currently on Seroquel. (2) Shortness of breath 0-10 Scale: Unable to quantify Comment: Currently tolerating O2 via nasal cannula. Pertinent Non-Medical Issues Psychosocial: Patient originally from [place]. He is , he reports having 6 children. Pt served in the . Spiritual: No mu-ism affiliation. Legal: Advance directives completed. Ethical issues impacting care: Patient unable to participating medical decision- making given dementia. Kevin Angulo acting as healthcare surrogate decision maker. . Important Contacts Kevin Campuzano/[facility] Daughter Dyan Campuzano Son Dennis Campuzano . Prognosis Mr. Campuzano [age]-year-old male with a medical history significant for dementia, hypertension, chronic kidney failure, CAD and squamous cell carcinoma. Patient arrived to ED on 01/11/17 after family called EMS secondary to worsening dementia/failure to thrive. Clinical course complicated by agitation/restlessness and hypotension. Patient's overall prognosis is guarded given multiple acute on chronic comorbidities to include CHF exacerbation, worsening kidney failure, ischemic cardiomyopathy with EF of 25%, acute kidney injury and dementia, as as well as advanced age, failure to thrive and physical deconditioning. Patient remains a high risk for further complications, continue decline and . . Code Status: Alternative Code Plan * CODE STATUS: Alt code/cardiac only. Pt's kevin Angulo acting as HCS electing alternative code/cardiac code only with chest compressions, ACLS drugs and defibrillation. No intubation/mechanical ventilation. * HEALTHCARE DECISION-MAKING: Patient unable to participating medical decision- making secondary to clinical condition, baseline dementia with worsening confusion. Advance directives in file, patient elected kevin Campuzano as healthcare surrogate decision-maker, first alternate surrogate kevin Campuzano. Second alternate surrogate his daughter Lea Salas. * GOALS OF CARE: Kevin Angulo acting as HCS electing to continue conservative management short of no intubation/mechanical ventilation with the ultimate goal of [facility]. Family familiar with hospice philosophy and benefits and are receptive to enrolling patient into hospice should his clinical condition continues to worsen. Son was unable to continue with goals of care conversation via phone, tentative in-person meeting this Saturday or given his complicated work schedule. * SYMPTOMS: = Shortness of breath, exacerbated by CHF. Currently tolerating O2 via nasal cannula, on fluid restriction. = Agitation/restlessness, baseline dementia. Currently on Seroquel 50 mg twice a day. Haldol 5 mg q4hr PRN, has received 2 doses yesterday and 1 dose today. Palliative care recommends discontinuation of Haldol given prolonged QT interval of 447. * Case discussed with BRANDIN Espitia. * Palliative care contact information has been provided to patient's son Kev. * Palliative care will continue to follow-up for further clarifications of goals of care as patient's clinical course continues to evolve. . (Carolina Ray) Time Spent Total Floor Time (mins): 66 (Total time to include review and summarization of available medical records to include prior oncology/radiation notes, physical exam, goals of care conversation with patient's son Kev, case discussion with BRANDIN Bland. ) >50% Counseling/Coord of Care: Yes (Carolina Ray) Thank you for the opportunity to participate in the care of Mr. Campuzano. (Carolina Ray) Attestation To help prompt me to consider important information that might be impacting today's encounter and assessment, information from prior notes written by myself or my colleagues may have been "brought forward" into today's note. My signature on this note, however, is an attestation that I personally performed the exam, history, and/or decision-making noted today, and, unless otherwise indicated, the interactions with patient, family, and staff as well as the review of records all occurred today. I also attest that the listed assessment and stated plan reflect my best clinical judgment today based on the combination of historical information, prior notes, and today's exam/ interactions. When time spent is documented, it refers only to time spent today by the signer, or if indicated, combined time spent today by collaborating physician/nurse practitioner. (Carolina Ray) Collaborating MD Comments Chart reviewed. Case discussed with palliative care CLIENT CARE REPRESENTATIVE. Above CLIENT CARE REPRESENTATIVE note reviewed and I concur. . (Dimitri Nova MD) Carolina Ray Jan 15, 2017 14:24 Dimitri Nova MD Jan 20, 2017 15:48
[2017-01-16] VITALS (18 sets, daily range): BP systolic 107–173; BP diastolic 52–86; PULSE 52–98; RESP 14–17; TEMP 97.1–97.9; O2SAT 94–98
[2017-01-16] MEDS: HEPARIN SODIUM - SQ 10,000 UNITS/ML VIAL SQ SCH ×2 (05:38→16:32)
[2017-01-16] MEDS: hydrALAZINE HCL 25 MG TAB PO SCH ×3 (05:39→21:31)
[2017-01-16] MEDS: ISOSORBIDE DINITRATE 10 MG TAB PO SCH ×3 (05:39→21:31)
[2017-01-16 07:02] LABS: HEMATOCRIT 46.9 % (39.0-51.0); MEAN CELL VOLUME 91.4 FL (80.0-100.0); MEAN CORPUSCULAR HGB CONC 33.9 % (32.0-36.0); PLATELET COUNT 202 TH/MM3 (150-450); RED BLOOD COUNT 5.14 MIL/MM3 (4.50-5.90); RED CELL DISTRIBUTION WIDTH 14.7 % (11.6-17.2); REVIEW FLAG FINAL
[2017-01-16 07:07] LABS: BICARBONATE 29.1 MEQ/L (21.0-32.0); POTASSIUM 3.3 MEQ/L (3.5-5.1)
[2017-01-16] MEDS: SODIUM CHLORIDE 0.9% FLUSH 10 ML FLUSH IV FLUSH SCH ×2 (10:00→21:32)
[2017-01-16] MEDS: QUEtiapine FUMARATE 25 MG TAB PO SCH ×2 (10:00→12:00)
[2017-01-16] MEDS: FAMOTIDINE 20 MG TAB PO SCH ×2 (10:01→21:31)
[2017-01-16] MEDS: ASPIRIN 325 MG TAB PO SCH (10:01)
[2017-01-16] MEDS: CARVEDILOL 6.25 MG TAB PO SCH ×2 (10:01→21:32)
--- NOTE | 2017-01-16 13:38 | HHI.HCPN ---
Reason for visit a. To assist with evaluation and management of symptoms including: Agitation and shortness of breath. b. To assist medical decision maker(s) with: better understanding of current medical conditions; weighing benefits/burdens of medical treatment options; making medical treatment decisions. . Subjective/Interval History Mr. Campuzano [age]-year-old male with a medical history significant for dementia, hypertension, chronic kidney failure, CAD and squamous cell carcinoma. Patient arrived to ED on 01/11/17 after family called EMS secondary to worsening dementia/failure to thrive. As per family, patient has not been taking his medications and his symptoms of confusion and agitation worsened. Clinical course complicated by worsening agitation and hypertension. Palliative care has been consulted for further clarifications of goals of care given her progressive decline, multiple comorbidities, advanced age and profound physical deconditioning. Patient seen in his room, he was resting in bed in no acute distress. Patient sleeping, easily arousable to voice. Slurred speech, confused. Remains on 4 point soft restraints. Patient afebrile, stable hemodynamically. Currently tolerating room air, oxygen saturation in the mid 90s. Patient with intermittent periods of agitation/anxiety and lethargy. Laboratory workup today revealing WBC 9.0, Hgb 15.9, platelet count 202. BUN/creatinine 43/2.2. No new images for review. Telephone call to pt's son Kev Campuzano. Left message in VM. Son currently working with disease case manager for discharge planning to SNF/long-term facility. . Family/friend interactions See interval note. . Advance Directives Living Will: Copy in medical record Health Care Surrogate: Copy in medical record Durable Power of Clearing Inspector: Copy in medical record Advance Directive Specifics Date completed: 06/02/2009. Health Care Surrogate(s): Patient elected kevin Campuzano as healthcare surrogate decision-maker, first alternate surrogate son Dennis Campuzano. Second alternate surrogate his daughter Lea Salas. . Documented care wishes: Living well with standard verbiage as it pertains to terminal condition, end- stage condition or persistent vegetative state. Patient electing the nutrition be withheld withdrawal when the application of such procedures would only serve to prolong artificially the process of dying. . Significant change in goals: Goals of care remain unchanged. . Objective Vital Signs Date Time Temp Pulse Resp B/P (MAP) Pulse Ox O2 Delivery O2 Flow Rate FiO2 10/4/17 12:00 53 01/16/17 11:00 60 01/16/17 11:00 97.1 60 17 107/52 (70) 95 01/16/17 10:00 66 01/16/17 09:00 64 01/16/17 08:00 65 01/16/17 07:00 97.7 62 16 129/62 (84) 96 01/16/17 07:00 62 01/16/17 06:00 62 01/16/17 05:00 58 01/16/17 04:00 54 01/16/17 03:30 58 14 124/56 (78) 98 01/16/17 03:00 86 01/16/17 02:00 52 01/16/17 01:00 54 01/16/17 00:00 56 01/15/17 23:00 58 01/15/17 23:00 64 16 108/56 (73) 94 01/15/17 22:00 62 01/15/17 21:00 82 01/15/17 20:00 58 01/15/17 19:15 97.7 88 20 165/81 (109) 96 01/15/17 19:00 80 01/15/17 18:00 75 01/15/17 17:00 60 01/15/17 16:00 64 01/15/17 15:30 98.3 54 18 138/73 (94) 97 01/15/17 15:01 54 01/15/17 14:00 50 Intake & Output 01/16/17 01/16/17 07:00 19:00 Intake Total 480 ml Balance 480 ml Intake Oral 480 ml # Voids 4 Physical Exam CONSTITUTIONAL/GENERAL: This is an thin, elderly male in no acute distress. TUBES/LINES/DRAINS: PIV's, soft wrist and ankle restraints bilaterally. SKIN: Pale. No jaundice. Ecchymoses on upper extremities.Skin temperature appropriate. Not diaphoretic. Multiple skin tears and scabs on upper and lower extremities. Patches of dry/erythematous skin on bilateral forearms and hands. HEAD: Atraumatic. Normocephalic. EYES: Pupils equal and round and reactive. No scleral icterus. No injection or drainage. Fundi not examined. Wears eyeglasses. ENT: Hearing appears normal. Nose without bleeding or purulent drainage. Moist oral mucosa. NECK: Trachea midline. Supple, nontender. CARDIOVASCULAR: Regular rate and rhythm. Peripheral pulses symmetric. RESPIRATORY/CHEST: Symmetric, unlabored respirations. Clear to auscultation, diminished. Breath sounds equal bilaterally. GASTROINTESTINAL: Abdomen soft, non-tender, nondistended. No guarding. Bowel sounds present. GENITOURINARY: Without palpable bladder distension. Adult briefs in place. MUSCULOSKELETAL: Extremities without clubbing, cyanosis, or edema. No mottling or clubbing. NEUROLOGICAL: Alert to self. Confused as to place, time and situation. Baseline dementia. Moves all extremities. PSYCHIATRIC: Appears calm. . Diagnostic Tests Laboratory Laboratory Tests Test 01/14/17 06:50 01/14/17 20:38 01/15/17 06:01 01/15/17 13:10 Blood Urea Nitrogen 36 MG/DL (7-18) 37 MG/DL (7-18) 40 MG/DL (7-18) 44 MG/DL (7-18) Creatinine 2.23 MG/DL (0.60-1.30) 2.42 MG/DL (0.60-1.30) 2.43 MG/DL (0.60-1.30) 2.41 MG/DL (0.60-1.30) Random Glucose 106 MG/DL (74-106) 110 MG/DL (74-106) 96 MG/DL (74-106) 118 MG/DL (74-106) Calcium Level 9.6 MG/DL (8.5-10.1) 9.9 MG/DL (8.5-10.1) 10.0 MG/DL (8.5-10.1) 9.8 MG/DL (8.5-10.1) Sodium Level 139 MEQ/L (136-145) 139 MEQ/L (136-145) 141 MEQ/L (136-145) 138 MEQ/L (136-145) Potassium Level 2.6 MEQ/L (3.5-5.1) 2.8 MEQ/L (3.5-5.1) 3.5 MEQ/L (3.5-5.1) 3.8 MEQ/L (3.5-5.1) Chloride Level 96 MEQ/L (98-107) 98 MEQ/L (98-107) 100 MEQ/L (98-107) 103 MEQ/L (98-107) Carbon Dioxide Level 32.6 MEQ/L (21.0-32.0) 30.4 MEQ/L (21.0-32.0) 31.4 MEQ/L (21.0-32.0) 27.3 MEQ/L (21.0-32.0) Anion Gap 10 MEQ/L (5-15) 11 MEQ/L (5-15) 10 MEQ/L (5-15) 8 MEQ/L (5-15) Estimat Glomerular Filtration Rate 28 ML/MIN (>89) 25 ML/MIN (>89) 25 ML/MIN (>89) 26 ML/MIN (>89) Magnesium Level 2.2 MG/DL (1.5-2.5) Test 01/16/17 05:50 White Blood Count 9.0 TH/MM3 (4.0-11.0) Red Blood Count 5.14 MIL/MM3 (4.50-5.90) Hemoglobin 15.9 GM/DL (13.0-17.0) Hematocrit 46.9 % (39.0-51.0) Mean Corpuscular Volume 91.4 FL (80.0-100.0) Mean Corpuscular Hemoglobin 31.0 PG (27.0-34.0) Mean Corpuscular Hemoglobin Concent 33.9 % (32.0-36.0) Red Cell Distribution Width 14.7 % (11.6-17.2) Platelet Count 202 TH/MM3 (150-450) Mean Platelet Volume 10.4 FL (7.0-11.0) Blood Urea Nitrogen 43 MG/DL (7-18) Creatinine 2.22 MG/DL (0.60-1.30) Random Glucose 89 MG/DL (74-106) Calcium Level 10.0 MG/DL (8.5-10.1) Sodium Level 142 MEQ/L (136-145) Potassium Level 3.3 MEQ/L (3.5-5.1) Chloride Level 104 MEQ/L (98-107) Carbon Dioxide Level 29.1 MEQ/L (21.0-32.0) Anion Gap 9 MEQ/L (5-15) Estimat Glomerular Filtration Rate 28 ML/MIN (>89) Result Diagram: 01/16/17 0550 01/16/17 0550 Assessment and Plan Disease Oriented Problem List: (1) Acute exacerbation of CHF (congestive heart failure) (2) Non-ST elevated myocardial infarction (non-STEMI) (3) CAD (coronary artery disease) (4) Ischemic cardiomyopathy (5) Dementia (6) Acute on chronic kidney failure (7) Hypertension (8) Physical deconditioning Symptom Scale: (1) Restlessness and agitation 0-10 Scale: Unable to quantify Comment: Baseline dementia. Currently on Seroquel. (2) Shortness of breath 0-10 Scale: Unable to quantify Comment: Currently tolerating O2 via nasal cannula. Pertinent Non-Medical Issues Psychosocial: Patient originally from [place]. He is , he reports having 6 children. Pt served in the . Spiritual: No spiritism affiliation. Legal: Advance directives completed. Ethical issues impacting care: Patient unable to participating medical decision- making given dementia. Kevin Angulo acting as healthcare surrogate decision maker. . Important Contacts Kevin Campuzano/[facility] Daughter Dyan Campuzano Son Dennis Campuzano . Prognosis Mr. Campuzano [age]-year-old male with a medical history significant for dementia, hypertension, chronic kidney failure, CAD and squamous cell carcinoma. Patient arrived to ED on 01/11/17 after family called EMS secondary to worsening dementia/failure to thrive. Clinical course complicated by agitation/restlessness and hypotension. Patient's overall prognosis is guarded given multiple acute on chronic comorbidities to include CHF exacerbation, worsening kidney failure, ischemic cardiomyopathy with EF of 25%, acute kidney injury and dementia, as as well as advanced age, failure to thrive and physical deconditioning. Patient remains a high risk for further complications, continue decline and . . Code Status: Alternative Code Plan * CODE STATUS: Alt code/cardiac only. Pt's son Kev acting as HCS electing alternative code/cardiac code only with chest compressions, ACLS drugs and defibrillation. NO intubation/mechanical ventilation. * GOALS OF CARE: Goals of care remain unchanged. Kevin Angulo acting as HCS electing to continue conservative management short of no intubation/mechanical ventilation with the ultimate goal [facility]. Son currently working with disease case manager for disposition. Son familiar with hospice philosophy and benefits and is receptive to enrolling patient into hospice should his clinical condition continues to worsen. * HEALTHCARE DECISION-MAKING: Patient unable to participating medical decision- making secondary to clinical condition, baseline dementia with worsening confusion. Advance directives in file, patient elected son Kev Campuzano as healthcare surrogate decision-maker, first alternate surrogate son Dennis Campuzano. Second alternate surrogate his daughter Lea Salas. * SYMPTOMS: = Shortness of breath, exacerbated by CHF. O2 as needed, on fluid restriction. = Agitation/restlessness, baseline dementia. Currently on Seroquel 50 mg twice a day. Morning dose was held secondary to lethargy. Haldol 5 mg q4hr PRN, has received 1 dose yesterday. Palliative care recommends discontinuation of Haldol given prolonged QT interval of 458 on 01/11/17 ECG. * Palliative care contact information has been provided to patient's son Kev. * Palliative care will continue to follow-up for further clarifications of goals of care as patient's clinical course continues to evolve. . Time Spent Total Floor Time (mins): 24 (Total time to include review medical records, physical exam, telephone call to patient's son Kev.) >50% Counseling/Coord of Care: Yes Attestation To help prompt me to consider important information that might be impacting today's encounter and assessment, information from prior notes written by myself or my colleagues may have been "brought forward" into today's note. My signature on this note, however, is an attestation that I personally performed the exam, history, and/or decision-making noted today, and, unless otherwise indicated, the interactions with patient, family, and staff as well as the review of records all occurred today. I also attest that the listed assessment and stated plan reflect my best clinical judgment today based on the combination of historical information, prior notes, and today's exam/ interactions. When time spent is documented, it refers only to time spent today by the signer, or if indicated, combined time spent today by collaborating physician/nurse practitioner. Carolina Ray Jan 16, 2017 13:38
[2017-01-16] MEDS ORDERED: POTASSIUM CHLORIDE 25 MEQ EFFERVESCENT TAB PO ONE (13:45)
--- NOTE | 2017-01-16 13:45 | HHI.PR ---
Subjective Subjective Remarks opens eyes to voice, somnolent BP improved unable to obtain ROS Review of Systems Constitutional Constitutional Remarks unable to obtain ROS Vitals/Results Vital Signs Vital Signs Date Time Temp Pulse Resp B/P (MAP) Pulse Ox O2 Delivery O2 Flow Rate FiO2 01/16/17 12:00 53 01/16/17 11:00 60 01/16/17 11:00 97.1 60 17 107/52 (70) 95 01/16/17 10:00 66 01/16/17 09:00 64 01/16/17 08:00 65 01/16/17 07:00 97.7 62 16 129/62 (84) 96 01/16/17 07:00 62 01/16/17 06:00 62 01/16/17 05:00 58 01/16/17 04:00 54 01/16/17 03:30 58 14 124/56 (78) 98 01/16/17 03:00 86 01/16/17 02:00 52 01/16/17 01:00 54 01/16/17 00:00 56 01/15/17 23:00 58 01/15/17 23:00 64 16 108/56 (73) 94 01/15/17 22:00 62 01/15/17 21:00 82 01/15/17 20:00 58 01/15/17 19:15 97.7 88 20 165/81 (109) 96 01/15/17 19:00 80 01/15/17 18:00 75 01/15/17 17:00 60 01/15/17 16:00 64 01/15/17 15:30 98.3 54 18 138/73 (94) 97 01/15/17 15:01 54 01/15/17 14:00 50 CBC/BMP: 01/16/17 0550 01/16/17 0550 Lab Results Laboratory Tests Test 01/16/17 05:50 White Blood Count 9.0 TH/MM3 Red Blood Count 5.14 MIL/MM3 Hemoglobin 15.9 GM/DL Hematocrit 46.9 % Mean Corpuscular Volume 91.4 FL Mean Corpuscular Hemoglobin 31.0 PG Mean Corpuscular Hemoglobin Concent 33.9 % Red Cell Distribution Width 14.7 % Platelet Count 202 TH/MM3 Mean Platelet Volume 10.4 FL Blood Urea Nitrogen 43 MG/DL Creatinine 2.22 MG/DL Random Glucose 89 MG/DL Calcium Level 10.0 MG/DL Sodium Level 142 MEQ/L Potassium Level 3.3 MEQ/L Chloride Level 104 MEQ/L Carbon Dioxide Level 29.1 MEQ/L Anion Gap 9 MEQ/L Estimat Glomerular Filtration Rate 28 ML/MIN Physical Exam General General Appearance: Well Developed, No Acute Distress, Comfortable, Pale, Sleeping (lethargic) Eyes Eye Exam: Pupils Equal, Pupils Reactive Ears & Nose Ears & Nose Exam: Nasal Mucosa [place] Throat Throat Exam: Oral Mucosa [place] & Moist Neck Neck Exam: Neck Supple, Trachea Midline Pulmonary Resp Exam: Breath Sounds Equal, No Distress, Poor Inspiratory Effort Cardiology CV Exam: Regular, Normal Sinus Rhythm Gastrointestinal/Abdomen GI Exam: Soft, Non-Tender, Bowel Sounds Present, Non-Distended Musculoskeletal MS Exam: Joints Intact, Normal Tone Integumentary Skin Exam: Warm, Dry Extremeties Extremities Exam: Pedal Pulses Palpable, Trace Edema Neurologic Neuro Remarks Lethargic VTE Prophylaxis VTE Prophylaxis Meds: Heparin Assessment/Plan Assessment/Plan Assessment . Acute on chronic systolic CHF exacerbation, elevated troponin's, rule out NC. . Possible non-STEMI, chest pain. . Ischemic cardiomyopathy, EF 20 to 25% . Status post Hypertensive urgency, . Acute kidney injury, with chronic kidney disease stage, worsening renal function . Hypokalemia . Dementia . Agitation/uncooperative behavior . Refusing to eat Plan CHF symptoms have improved Cardiology resumed Lasix, DC due to low BP Continue with beta vishnu, nitrates, hydralazine Continue hydralazine 25 mg by mouth every 8 Clonidine, Norvasc, Lasix dc Hypotensive 10/3, given bolus, meds adjusted. BP better today 100s to 120s Continue with fluid restriction Has been clear for discharge by cardiology At times agitated requiring restraints lethargic, will change Seroquel to 25 mg po bid Renal function marginal Replace potassium Nonoliguric Initially with uncontrolled hypertension, now hypotensive. Medications have been adjusted. Continue to monitor blood pressure closely Pepcid for GI protection Subcutaneous heparin for DVT prophylaxis Physical therapy for evaluation D/W CM, family wants rehab instead of LTC. PT unable to eval, pt too lethargic. Will adjust Seroquel Palliative care input appreciated, they spoke to pt.'s son yesterday. Now DNI. They want pt to rehab before LTC Overall poor prognosis due to multiorgan dysfunction, underlying dementia, advanced in age Tx to med-surg with tele close to nurse's station Hopefully dc to SNF tomorrow if arrangements made. Discussed with RN Discussed with attending Discussed with CM This patient was seen by myself and Dr. Polk, this note is written on his behalf Ashli Gaffney Jan 16, 2017 13:45
[2017-01-16] MEDS ORDERED: DONEPEZIL HCL 5 MG TAB PO ONE (16:15)
[2017-01-16] MEDS ORDERED: QUEtiapine FUMARATE 25 MG TAB PO SCH (21:00)
[2017-01-16] MEDS: ZIPRASIDONE HCL 20 MG CAP PO SCH (21:33)
[2017-01-17] VITALS (10 sets, daily range): BP systolic 111–168; BP diastolic 44–91; PULSE 61–80; RESP 14–16; TEMP 97.3–98; O2SAT 95–98
[2017-01-17] MEDS: ISOSORBIDE DINITRATE 10 MG TAB PO SCH ×3 (06:36→21:32)
[2017-01-17] MEDS: hydrALAZINE HCL 25 MG TAB PO SCH ×3 (06:36→21:32)
[2017-01-17] MEDS: HEPARIN SODIUM - SQ 10,000 UNITS/ML VIAL SQ SCH ×2 (06:37→18:16)
[2017-01-17] MEDS: DONEPEZIL HCL 5 MG TAB PO SCH (08:27)
[2017-01-17] MEDS: SODIUM CHLORIDE 0.9% FLUSH 10 ML FLUSH IV FLUSH SCH ×2 (08:28→21:30)
[2017-01-17] MEDS: CARVEDILOL 6.25 MG TAB PO SCH ×2 (08:28→21:32)
[2017-01-17] MEDS: FAMOTIDINE 20 MG TAB PO SCH ×2 (08:28→21:32)
[2017-01-17] MEDS: ASPIRIN 325 MG TAB PO SCH (09:00)
--- NOTE | 2017-01-17 13:20 | HHI.PR ---
Subjective Subjective Remarks awake, oriented to self following commands wants to get out of bed fed himself breakfast wrist restraints off more calm unable to obtain ROS Review of Systems Constitutional Constitutional Remarks unable to obtain ROS Vitals/Results Vital Signs Vital Signs Date Time Temp Pulse Resp B/P (MAP) Pulse Ox O2 Delivery O2 Flow Rate FiO2 01/17/17 11:17 97.3 65 16 119/59 (79) 96 01/17/17 08:16 98.0 72 16 150/80 (103) 96 01/17/17 07:23 61 01/17/17 04:00 97.8 79 14 163/91 (115) 96 01/17/17 00:00 97.5 77 14 147/82 (103) 95 01/16/17 20:00 97.9 78 14 173/86 (115) 94 01/16/17 20:00 75 01/16/17 16:25 97.3 98 16 170/77 (108) 94 01/16/17 14:36 58 01/16/17 13:38 67 CBC/BMP: 01/16/17 0550 01/16/17 0550 Physical Exam General General Appearance: Well Developed, No Acute Distress, Comfortable, Pale, Anxious Eyes Eye Exam: Pupils Equal, Pupils Reactive Ears & Nose Ears & Nose Exam: Nasal Mucosa [place] Throat Throat Exam: Oral Mucosa [place] & Moist Neck Neck Exam: Neck Supple, Trachea Midline Pulmonary Resp Exam: Breath Sounds Equal, No Distress, Poor Inspiratory Effort Cardiology CV Exam: Regular, Normal Sinus Rhythm Gastrointestinal/Abdomen GI Exam: Soft, Non-Tender, Bowel Sounds Present, Non-Distended Musculoskeletal MS Exam: Joints Intact, Normal Tone Integumentary Skin Exam: Warm, Dry Extremeties Extremities Exam: Pedal Pulses Palpable, Trace Edema Neurologic Neuro Exam: Awake, Speech Clear, Moving All Extremities, No Focal Deficits VTE Prophylaxis VTE Prophylaxis Meds: Heparin Assessment/Plan Assessment/Plan Assessment . Acute on chronic systolic CHF exacerbation, elevated troponin's, rule out PA. . Possible non-STEMI, chest pain. . Ischemic cardiomyopathy, EF 20 to 25% . Status post Hypertensive urgency, . Acute kidney injury, with chronic kidney disease stage, worsening renal function . Hypokalemia . Dementia Plan CHF symptoms have improved appreciate card input, cleared for dc Continue with beta vishnu, nitrates, hydralazine Continue hydralazine 25 mg by mouth every 8 was hypotensive 10/, given bolus, meds adjusted. BP trending up, will resume Lasix 20 mg po daily Continue with fluid restriction Has been clear for discharge by cardiology At times agitated requiring restraints more awake now, occ. agitated Continue Seroquel, started on Geodon and Aricept improving, d/w RN, remove restraints, put on bed alarm Renal function marginal Replace potassium Nonoliguric Initially with uncontrolled hypertension, then hypotensive. Medications have been adjusted. Continue to monitor blood pressure closely Pepcid for GI protection Subcutaneous heparin for DVT prophylaxis Physical therapy for evaluation D/W CM, family wants rehab instead of LTC. PT evaluated, recommend SNF Palliative care input appreciated, they spoke to pt.'s son. Now DNI. They want pt to rehab before LTC Overall poor prognosis due to multiorgan dysfunction, underlying dementia, advanced in age Tx to med-surg with tele close to nurse's station D/W CM, waiting for bed. No place has accepted yet. needs off restraints, d/w RN Discussed with RN Discussed with attending Discussed with CM This patient was seen by myself and Dr. Polk, this note is written on his behalf Ashli Gaffney Jan 17, 2017 13:20
--- NOTE | 2017-01-17 17:23 | HHI.HCPN ---
Reason for visit a. To assist with evaluation and management of symptoms including: Agitation and shortness of breath. b. To assist medical decision maker(s) with: better understanding of current medical conditions; weighing benefits/burdens of medical treatment options; making medical treatment decisions. . Subjective/Interval History Mr. Campuzano [age]-year-old male with a medical history significant for dementia, hypertension, chronic kidney failure, CAD and squamous cell carcinoma. Patient arrived to ED on 01/11/17 after family called EMS secondary to worsening dementia/failure to thrive. As per family, patient has not been taking his medications and his symptoms of confusion and agitation worsened. Clinical course complicated by worsening agitation and hypertension. Palliative care has been consulted for further clarifications of goals of care given her progressive decline, multiple comorbidities, advanced age and profound physical deconditioning. Patient seen in his room, he was resting in bed in no acute distress. Patient alert to self, confused as to place and situation. Asking to go to a "dance". Patient verbal not always able to communicate needs secondary to confusion. Denying pain, shortness of breath, nausea/vomiting or abdominal discomfort. Patient with intermittent periods of restlessness/agitation requiring restraints vs somnolence/lethargy. Seroquel discontinued, patient was started on Geodon and Aricept. No new imaging or laboratory workup for review. Case discussed with BRANDIN Bland, bedside RN and high risk case manager Berenice. Family looking into rehabilitation, potential for difficult placement giving behavioral issues. Telephone call to patient's son Kev, bryce message in voicemail. . Family/friend interactions See interval note. . Advance Directives Living Will: Copy in medical record Health Care Surrogate: Copy in medical record Durable Power of Passenger Brakeman: Copy in medical record Advance Directive Specifics Date completed: 06/02/2009. Health Care Surrogate(s): Patient elected son Kev Campuzano as healthcare surrogate decision-maker, first alternate surrogate son Dennis Campuzano. Second alternate surrogate his daughter Lea Salas. . Documented care wishes: Living well with standard verbiage as it pertains to terminal condition, end- stage condition or persistent vegetative state. Patient electing the nutrition be withheld withdrawal when the application of such procedures would only serve to prolong artificially the process of dying. . Significant change in goals: Goals of care remain unchanged, ongoing discharge planning. . Objective Vital Signs Date Time Temp Pulse Resp B/P (MAP) Pulse Ox O2 Delivery O2 Flow Rate FiO2 01/17/17 15:33 97.7 64 16 111/44 (66) 96 01/17/17 11:17 97.3 65 16 119/59 (79) 96 01/17/17 08:16 98.0 72 16 150/80 (103) 96 01/17/17 07:23 61 01/17/17 04:00 97.8 79 14 163/91 (115) 96 01/17/17 00:00 97.5 77 14 147/82 (103) 95 01/16/17 20:00 97.9 78 14 173/86 (115) 94 01/16/17 20:00 75 Intake & Output 01/17/17 01/17/17 07:00 19:00 Intake Total 240 ml Output Total 1075 ml Balance -835 ml Intake Oral 240 ml Output Urine Total 1075 ml Physical Exam CONSTITUTIONAL/GENERAL: This is an thin, elderly male in no acute distress. TUBES/LINES/DRAINS: PIV's, soft wrist and ankle restraints bilaterally. SKIN: Pale. No jaundice. Ecchymoses on upper extremities.Skin temperature appropriate. Not diaphoretic. Multiple skin tears and scabs on upper and lower extremities. Patches of dry/erythematous skin on bilateral forearms and hands. HEAD: Atraumatic. Normocephalic. EYES: Pupils equal and round and reactive. No scleral icterus. No injection or drainage. Fundi not examined. Wears eyeglasses. ENT: Hearing appears normal. Nose without bleeding or purulent drainage. Moist oral mucosa. NECK: Trachea midline. Supple, nontender. CARDIOVASCULAR: Regular rate and rhythm. Peripheral pulses symmetric. RESPIRATORY/CHEST: Symmetric, unlabored respirations. Clear to auscultation, diminished. Breath sounds equal bilaterally. GASTROINTESTINAL: Abdomen soft, non-tender, nondistended. No guarding. Bowel sounds present. GENITOURINARY: Without palpable bladder distension. Adult briefs in place. MUSCULOSKELETAL: Extremities without clubbing, cyanosis, or edema. No mottling or clubbing. NEUROLOGICAL: Alert to self. Confused as to place, time and situation. Baseline dementia. Moves all extremities. PSYCHIATRIC: Appears calm. Intermittent periods of restlessness/agitation. . Diagnostic Tests Laboratory Laboratory Tests Test 01/14/17 20:38 01/15/17 06:01 01/15/17 13:10 01/16/17 05:50 Blood Urea Nitrogen 37 MG/DL (7-18) 40 MG/DL (7-18) 44 MG/DL (7-18) 43 MG/DL (7-18) Creatinine 2.42 MG/DL (0.60-1.30) 2.43 MG/DL (0.60-1.30) 2.41 MG/DL (0.60-1.30) 2.22 MG/DL (0.60-1.30) Random Glucose 110 MG/DL (74-106) 96 MG/DL (74-106) 118 MG/DL (74-106) 89 MG/DL (74-106) Calcium Level 9.9 MG/DL (8.5-10.1) 10.0 MG/DL (8.5-10.1) 9.8 MG/DL (8.5-10.1) 10.0 MG/DL (8.5-10.1) Sodium Level 139 MEQ/L (136-145) 141 MEQ/L (136-145) 138 MEQ/L (136-145) 142 MEQ/L (136-145) Potassium Level 2.8 MEQ/L (3.5-5.1) 3.5 MEQ/L (3.5-5.1) 3.8 MEQ/L (3.5-5.1) 3.3 MEQ/L (3.5-5.1) Chloride Level 98 MEQ/L (98-107) 100 MEQ/L (98-107) 103 MEQ/L (98-107) 104 MEQ/L (98-107) Carbon Dioxide Level 30.4 MEQ/L (21.0-32.0) 31.4 MEQ/L (21.0-32.0) 27.3 MEQ/L (21.0-32.0) 29.1 MEQ/L (21.0-32.0) Anion Gap 11 MEQ/L (5-15) 10 MEQ/L (5-15) 8 MEQ/L (5-15) 9 MEQ/L (5-15) Estimat Glomerular Filtration Rate 25 ML/MIN (>89) 25 ML/MIN (>89) 26 ML/MIN (>89) 28 ML/MIN (>89) Magnesium Level 2.2 MG/DL (1.5-2.5) White Blood Count 9.0 TH/MM3 (4.0-11.0) Red Blood Count 5.14 MIL/MM3 (4.50-5.90) Hemoglobin 15.9 GM/DL (13.0-17.0) Hematocrit 46.9 % (39.0-51.0) Mean Corpuscular Volume 91.4 FL (80.0-100.0) Mean Corpuscular Hemoglobin 31.0 PG (27.0-34.0) Mean Corpuscular Hemoglobin Concent 33.9 % (32.0-36.0) Red Cell Distribution Width 14.7 % (11.6-17.2) Platelet Count 202 TH/MM3 (150-450) Mean Platelet Volume 10.4 FL (7.0-11.0) Result Diagram: 01/16/17 0550 01/16/17 0550 Assessment and Plan Disease Oriented Problem List: (1) Acute exacerbation of CHF (congestive heart failure) (2) Non-ST elevated myocardial infarction (non-STEMI) (3) CAD (coronary artery disease) (4) Ischemic cardiomyopathy (5) Dementia (6) Acute on chronic kidney failure (7) Hypertension (8) Physical deconditioning Symptom Scale: (1) Restlessness and agitation 0-10 Scale: Unable to quantify Comment: Baseline dementia. Currently on Seroquel. (2) Shortness of breath 0-10 Scale: Unable to quantify Comment: Currently tolerating room air. Pertinent Non-Medical Issues Psychosocial: Patient originally from [place]. He is , he reports having 6 children. Pt served in the . Spiritual: No [employer] affiliation. Legal: Advance directives completed. Ethical issues impacting care: Patient unable to participating medical decision- making given dementia. Kevin Angulo acting as healthcare surrogate decision maker. . Important Contacts Son Kev Campuzano/[facility] Daughter Dyan Campuzano Son Dennis Campuzano . Prognosis Mr. Campuzano [age]-year-old male with a medical history significant for dementia, hypertension, chronic kidney failure, CAD and squamous cell carcinoma. Patient arrived to ED on 01/11/17 after family called EMS secondary to worsening dementia/failure to thrive. Clinical course complicated by agitation/restlessness and hypotension. Patient's overall prognosis is guarded given multiple acute on chronic comorbidities to include CHF exacerbation, worsening kidney failure, ischemic cardiomyopathy with EF of 25%, acute kidney injury and dementia, as as well as advanced age, failure to thrive and physical deconditioning. Patient remains a high risk for further complications, continue decline and . . Code Status: Alternative Code Plan * CODE STATUS: Alt code/cardiac only. Pt's son Kev acting as HCS electing alternative code/cardiac code only with chest compressions, ACLS drugs and defibrillation. NO intubation/mechanical ventilation. * GOALS OF CARE: Goals of care remain unchanged. Son Kev acting as HCS electing to continue conservative management short of NO intubation/NO mechanical ventilation with the ultimate goal of discharge to SNF/rehab. Concerns of difficult placement given behavioral issues. Hospice philosophy and benefits reviewed, son receptive to hospice should patient's clinical condition continues to worsen. * HEALTHCARE DECISION-MAKING: Patient unable to participating medical decision- making secondary to clinical condition, baseline dementia with worsening confusion. Advance directives in file, patient elected kevin Campuzano as healthcare surrogate decision-maker, first alternate surrogate son Dennis Campuzano. Second alternate surrogate his daughter Lea Salas. * SYMPTOMS: = Shortness of breath, exacerbated by CHF. O2 as needed, on fluid restriction. = Agitation/restlessness, baseline dementia. Seroquel has been discontinued, patient was placed on Geodon and Aricept. Haldol 5 mg q4hr PRN, no doses given in the past 24 hours. Palliative care recommends discontinuation of Haldol given prolonged QT interval of 458 on 01/11/17 ECG. * Case discussed with BRANDIN Balnd, high risk case manager Berenice and bedside RN. * Palliative care contact information has been provided to patient's son Kve. * Palliative care will continue to follow-up for further clarifications of goals of care as patient's clinical course continues to evolve. . Time Spent Total Floor Time (mins): 26 (Total time to include review medical records, physical exam, telephone call to patient's son, case discussion with hospitalist , high risk case manager and bedside RN.) >50% Counseling/Coord of Care: Yes Attestation To help prompt me to consider important information that might be impacting today's encounter and assessment, information from prior notes written by myself or my colleagues may have been "brought forward" into today's note. My signature on this note, however, is an attestation that I personally performed the exam, history, and/or decision-making noted today, and, unless otherwise indicated, the interactions with patient, family, and staff as well as the review of records all occurred today. I also attest that the listed assessment and stated plan reflect my best clinical judgment today based on the combination of historical information, prior notes, and today's exam/ interactions. When time spent is documented, it refers only to time spent today by the signer, or if indicated, combined time spent today by collaborating physician/nurse practitioner. Carolina Ray Jan 17, 2017 17:22
[2017-01-17] MEDS: ZIPRASIDONE HCL 20 MG CAP PO SCH (21:32)
[2017-01-18 03:00] VITALS: PULSE 53
[2017-01-18 06:00] VITALS: BP 138/69; PULSE 70; RESP 16; TEMP 98.2; O2SAT 96
[2017-01-18] MEDS: HEPARIN SODIUM - SQ 10,000 UNITS/ML VIAL SQ SCH (06:16)
[2017-01-18] MEDS: hydrALAZINE HCL 25 MG TAB PO SCH ×2 (06:16→15:17)
[2017-01-18] MEDS: ISOSORBIDE DINITRATE 10 MG TAB PO SCH ×2 (06:17→15:17)
[2017-01-18 07:00] VITALS: BP 155/70; PULSE 72; PULSE 76; RESP 14; TEMP 97.3; O2SAT 95
[2017-01-18] MEDS ORDERED: FUROSEMIDE 20 MG TAB PO SCH (09:00)
[2017-01-18] MEDS: CARVEDILOL 6.25 MG TAB PO SCH (09:22)
[2017-01-18] MEDS: ASPIRIN 325 MG TAB PO SCH (09:22)
[2017-01-18] MEDS: FAMOTIDINE 20 MG TAB PO SCH (09:22)
[2017-01-18] MEDS: SODIUM CHLORIDE 0.9% FLUSH 10 ML FLUSH IV FLUSH SCH (09:23)
[2017-01-18] MEDS: DONEPEZIL HCL 5 MG TAB PO SCH (09:27)
[2017-01-18 11:00] VITALS: BP 145/94; PULSE 54; PULSE 72; RESP 18; TEMP 97.3; O2SAT 96
--- NOTE | 2017-01-18 12:06 | HHI.PR ---
Subjective Subjective Remarks sleeping, awakes to voice, oriented to self and place calm, pleasant no restraints since yesterday denies CP, SOB when asked no fever ROS limited Review of Systems Constitutional Constitutional Remarks unable to obtain ROS Vitals/Results Vital Signs Vital Signs Date Time Temp Pulse Resp B/P (MAP) Pulse Ox O2 Delivery O2 Flow Rate FiO2 01/18/17 11:00 97.3 72 18 145/94 (111) 96 01/18/17 11:00 54 01/18/17 07:00 97.3 76 14 155/70 (98) 95 01/18/17 07:00 72 01/18/17 06:00 98.2 70 16 138/69 (92) 96 01/18/17 03:00 53 01/17/17 23:30 97.6 66 16 140/63 (88) 97 01/17/17 23:00 80 01/17/17 20:00 97.5 75 16 168/84 (112) 98 01/17/17 19:00 74 01/17/17 15:33 97.7 64 16 111/44 (66) 96 CBC/BMP: 01/16/17 0550 01/16/17 0550 Physical Exam General General Appearance: Well Developed, No Acute Distress, Comfortable, Pale, Sleeping Eyes Eye Exam: Pupils Equal, Pupils Reactive Ears & Nose Ears & Nose Exam: Nasal Mucosa [place] Throat Throat Exam: Oral Mucosa [place] & Moist Neck Neck Exam: Neck Supple, Trachea Midline Pulmonary Resp Exam: Breath Sounds Equal, No Distress, Poor Inspiratory Effort Cardiology CV Exam: Regular, Normal Sinus Rhythm Gastrointestinal/Abdomen GI Exam: Soft, Non-Tender, Bowel Sounds Present, Non-Distended Musculoskeletal MS Exam: Joints Intact, Normal Tone Integumentary Skin Exam: Warm, Dry Extremeties Extremities Exam: Pedal Pulses Palpable, Trace Edema Neurologic Neuro Exam: Awake, Speech Clear, Moving All Extremities, Build And Release Manager Equal, No Focal Deficits VTE Prophylaxis VTE Prophylaxis Meds: Heparin Assessment/Plan Assessment/Plan Assessment . Acute on chronic systolic CHF exacerbation, elevated troponin's, rule out [place]. . Possible non-STEMI, chest pain. . Ischemic cardiomyopathy, EF 20 to 25% . Status post Hypertensive urgency, . Acute kidney injury, with chronic kidney disease stage, worsening renal function . Hypokalemia . Dementia with agitation, now resolved Plan CHF symptoms have improved appreciate card input, cleared for dc Continue with beta vishnu, nitrates, hydralazine Continue hydralazine 25 mg by mouth every 8 was hypotensive 10/3, given bolus, meds adjusted. Lasix 20 mg po daily resumed, BP stable Continue with fluid restriction Has been clear for discharge by cardiology Was agitated, required restraints. Continue Seroquel, Geodon and Aricept more calm, cooperative, off restraints. Continue on present tx Renal function marginal Nonoliguric Initially with uncontrolled hypertension, then hypotensive. Medications were adjusted. BP stable, continue on present meds Pepcid for GI protection Subcutaneous heparin for DVT prophylaxis Physical therapy for evaluation D/W CM, family wants rehab instead of LTC. PT evaluated, recommend SNF Palliative care input appreciated, they spoke to pt.'s son. Now DNI. They want pt to rehab before LTC Overall poor prognosis due to multiorgan dysfunction, underlying dementia, advanced in age Tx to med-surg with tele close to nurse's station Has been accepted at SNF Discharge to SNF today if bed available Diet-heart healthy Activity-as tolerated Discussed with RN Discussed with attending Discussed with CM This patient was seen by myself and Dr. Polk, this note is written on his behalf Ashli Gaffney Jan 18, 2017 12:06
--- NOTE | 2017-01-18 12:07 | HHI.DCPOC ---
Discharge Care Plan Diagnosis: (1) Non-ST elevated myocardial infarction (non-STEMI) (2) Acute exacerbation of CHF (congestive heart failure) (3) Hypertensive urgency (4) CAD (coronary artery disease) (5) Hypertension (6) Congestive heart failure (CHF) (7) Shortness of breath (8) Dementia (9) Ischemic cardiomyopathy (10) Physical deconditioning (11) Restlessness and agitation (12) Acute on chronic kidney failure Your Health Problems Are: Chest Pain Fluid/Lung Overload Shortness of Breath Goals to Promote Your Health * To prevent worsening of your condition and complications * To maintain your health at the optimal level Directions to Meet Your Goals Take your medications as prescribed Follow your dietary instruction Follow activity as directed Keep your appointments as scheduled Take your immunizations and boosters as scheduled If your symptoms worsen call your PCP, if no PCP go to Urgent Care Center or Emergency Room Smoking is Dangerous to Your Health. Avoid second hand smoke Call the 24-hour hour crisis hotline for domestic abuse at Ashli Gaffney Jan 18, 2017 12:07
[2017-01-18] MEDS ORDERED: ISOS10TA PO (12:10)
[2017-01-18] MEDS ORDERED: ARIC5TAB2 PO (12:10)
[2017-01-18] MEDS ORDERED: ASPI325T PO (12:10)
[2017-01-18] MEDS ORDERED: FURO20TA PO (12:10)
[2017-01-18] MEDS ORDERED: ZIPR20 PO (12:10)
[2017-01-18] MEDS ORDERED: CARV6.25 PO (12:10)
[2017-01-18] MEDS ORDERED: HYDR-3799 PO (12:10)
--- NOTE | 2017-01-18 14:36 | HHI.DS ---
Discharge Summary Admission Date Jan 11, 2017 at 05:09 Discharge Date: Jan 18, 2017 Admitting Diagnosis CHF EXACERBATION, NONSTEMI, ACCELERATED HTN (1) Acute exacerbation of CHF (congestive heart failure) ICD Codes: I50.9 - Heart failure, unspecified Status: Acute (2) Hypertensive urgency ICD Codes: I16.0 - Hypertensive urgency Status: Acute (3) CAD (coronary artery disease) ICD Codes: I25.10 - Atherosclerotic heart disease of [place] coronary artery without angina pectoris Status: Chronic (4) Hypertension ICD Codes: I10 - Essential (primary) hypertension Status: Chronic (5) Dementia ICD Codes: F03.90 - Unspecified dementia without behavioral disturbance (6) Ischemic cardiomyopathy ICD Codes: I25.5 - Ischemic cardiomyopathy (7) Restlessness and agitation ICD Codes: R45.1 - Restlessness and agitation (8) Physical deconditioning ICD Codes: R53.81 - Other malaise (9) Acute on chronic kidney failure ICD Codes: N17.9 - Acute kidney failure, unspecified; N18.9 - Chronic kidney disease, unspecified (10) Shortness of breath ICD Codes: R06.02 - Shortness of breath (11) Non-ST elevated myocardial infarction (non-STEMI) ICD Codes: I21.4 - Non-ST elevation (NSTEMI) myocardial infarction Status: Acute CBC/BMP: 01/16/17 0550 01/16/17 0550 Significant Findings Laboratory Tests Test 01/16/17 05:50 Blood Urea Nitrogen 43 MG/DL (7-18) Creatinine 2.22 MG/DL (0.60-1.30) Potassium Level 3.3 MEQ/L (3.5-5.1) Estimat Glomerular Filtration Rate 28 ML/MIN (>89) Imaging Last Impressions Head CT 01/11/17329 Signed Impressions: Service Date/Time: Wednesday, January 11, 2017 03:44 - CONCLUSION: 1. No acute findings. Mild white matter ischemic changes. Kev Bobby MD Chest X-Ray 01/11/17329 Signed Impressions: Service Date/Time: Wednesday, January 11, 2017 03:42 - CONCLUSION: 1. Mild congestive heart failure. Kev Bobby MD Hospital Course This is an 86-year-old white male who was brought to the emergency room via ambulance called by a family member. According to the daughter who arrived at a later time, she stated that her father has not been feeling well and she was not sure that he was taking all his medicine correctly. According to the record, there is a [place] caregiver who daughter feels was not encouraging the pt. to take his meds. The patient is a poor historian. He was unable to give any accurate history. He did answer a few simple questionable and he did state that he was having some left-sided chest pain. He did not know how long or any other information. He denied any shortness of breath, denied any headache. His statement is, "I just have not felt well.". The patient did note some mild nausea, but no vomiting. Most of the information was gathered from the chart. Pt. was evaluated in the ED. DIAGNOSTIC DATA WBC count 8.8, RBC 4.31, hemoglobin 13.2, hematocrit 39.7, platelet count 200, elevated diff, monocyte percentage 8.7, PT/INR is 1.1. Chemistry sodium 143, potassium 3.3, chloride 108, carbon dioxide 29.3, amnion gap 6, BUN 32, creatinine 1.71, GFR 38, troponin 0.11, BNP 2534. Urine is negative except for a trace of occult blood and protein level is 100. No culture is indicated. IMAGING STUDIES Shows chest x-ray to have mild congestive heart failure. Head CT, no acute findings, mild white matter ischemic changes. Pt. was admitted, during the hospitalization, the following took place: Admitted for the following diagnosis. . Acute on chronic systolic CHF exacerbation, elevated troponin's, rule out [place]. . Possible non-STEMI, chest pain. . Ischemic cardiomyopathy, EF 20 to 25% . Status post Hypertensive urgency, . Acute kidney injury, with chronic kidney disease stage, worsening renal function . Hypokalemia . Dementia with agitation, now resolved Admitted to [facility] Continuous telemetry monitoring ordered. Consulted cardiology. Noted in [facility] Echo done, EF 20-25% with global hypokinesis. Trop elevated. Seen by cardiology. Put on diuretics, renal function monitored closely. BP was uncontrolled, meds were adjusted, PRN meds added CHF symptoms improved, restarted on Lasix Continued with beta vishnu, nitrates, hydralazine Continue hydralazine 25 mg by mouth every 8 was hypotensive 10/3, given bolus, meds adjusted. Lasix 20 mg po daily resumed, BP stable Put on fluid restriction Was cleared for discharge by cardiology During hospitalization, pt. became agitated, required restraints. Seroquel was added. DUe to sedation, dosage was adjusted. Because of inc. agitation, Geodon and Aricept were added. PT. more calm, cooperative, DC'd restraints. Participated with PT Renal function improved some, was non oliguric. Initially with uncontrolled hypertension, then hypotensive. Medications were adjusted. BP stabilized, continued on present meds Ordered Pepcid for GI protection and Subcutaneous heparin for DVT prophylaxis Palliative care consulted to assist family with decision making. They spoke to pt.'s son. Made a DNI. They wanted pt to rehab before LTC Overall poor prognosis due to multiorgan dysfunction, underlying dementia, advanced in age CM consult for dc planning, SNF accepted. Pt. improved, stable for dc Discharge to SNF Diet-heart healthy Activity-as tolerated Pt Condition on Discharge: Stable Discharge Disposition: Discharge to SNF Discharge Instructions DIET: Follow Instructions for: Heart Healthy Diet Activities you can perform: Weight Bearing as Chris Follow up Referrals: Cardiology PCP Follow-up New Medications: Aspirin (Aspirin) 325 Mg Tab 325 MG PO DAILY for CORONARY ARTERY DISEASE , #30 TAB Carvedilol (Coreg) 6.25 Mg Tab 6.25 MG PO BID for CORONARY ARTERY DISEASE , #60 TAB Donepezil HCl (Aricept) 5 Mg Tablet 5 MG PO DAILY for DEMENTIA , #30 TAB Furosemide (Furosemide) 20 Mg Tab 20 MG PO DAILY for FLUID OVERLOAD, #30 TAB Hydralazine HCl (Hydralazine HCl) 25 Mg Tablet 25 MG PO Q8HR for Blood Pressure Management, #90 TAB Isosorbide Dinitrate (Isosorbide Dinitrate) 10 Mg Tab 10 MG PO Q8HR for CORONARY ARTERY DISEASE , #90 TAB Ziprasidone (Geodon) 20 Mg Cap 20 MG PO HS for Agitation, #30 CAP Ashli Gaffney Jan 18, 2017 14:36
[2017-01-18 15:00] VITALS: BP 163/77; PULSE 74; PULSE 78; RESP 18; TEMP 97.6; O2SAT 96
--- NOTE | 2017-01-18 15:46 | HHI.HCPN ---
Reason for visit a. To assist with evaluation and management of symptoms including: Agitation and shortness of breath. b. To assist medical decision maker(s) with: better understanding of current medical conditions; weighing benefits/burdens of medical treatment options; making medical treatment decisions. . Subjective/Interval History Mr. Campuzano [age]-year-old male with a medical history significant for dementia, hypertension, chronic kidney failure, CAD and squamous cell carcinoma. Patient arrived to ED on 01/11/17 after family called EMS secondary to worsening dementia/failure to thrive. As per family, patient has not been taking his medications and his symptoms of confusion and agitation worsened. Clinical course complicated by worsening agitation and hypertension. Palliative care has been consulted for further clarifications of goals of care given her progressive decline, multiple comorbidities, advanced age and profound physical deconditioning. Patient seen in his room, he was standing up by the door in no acute distress. Patient alert to self, confused as to place and situation. Telling me that he is ready to leave. Patient verbal not always able to communicate needs secondary to confusion. Denying pain, shortness of breath, nausea/vomiting or abdominal discomfort. Reports that his appetite has improved, ate approximately 50% of his lunch. Patient remains afebrile, stable hemodynamically. Tolerating room air with oxygen saturation in the mid 90s. No new imaging or laboratory workup for review. Case reviewed with [employer]. Pending discharge to [facility] this afternoon. Telephone conversation with patient's son Kev. He reports that family is also of care are for patient to go to rehabilitation, he will likely require long-term placement as family is no longer able to care for him at home. Discussed current code status to include alternative code/cardiac code only. Discussed that out in the community patient is either full code or no code. Son reports that he has been considering switching patient to have no code, however, needs to further discuss with additional family members. Reviewed with son that if NO code status is elected, [facility] DNR has to be completed and sign by a physician. Son verbalized understanding. . Family/friend interactions See interval note. . Advance Directives Living Will: Copy in medical record Health Care Surrogate: Copy in medical record Durable Power of Automatic Mounter: Copy in medical record Advance Directive Specifics Date completed: 06/02/2009. Health Care Surrogate(s): Patient elected son Kev Campuzano as healthcare surrogate decision-maker, first alternate surrogate son Dennis Campuzano. Second alternate surrogate his daughter Lea Salas. . Documented care wishes: Living well with standard verbiage as it pertains to terminal condition, end- stage condition or persistent vegetative state. Patient electing the nutrition be withheld withdrawal when the application of such procedures would only serve to prolong artificially the process of dying. . Significant change in goals: Goals of care remain unchanged. . Objective Vital Signs Date Time Temp Pulse Resp B/P (MAP) Pulse Ox O2 Delivery O2 Flow Rate FiO2 01/18/17 15:00 74 01/18/17 15:00 97.6 78 18 163/77 (105) 96 01/18/17 11:00 97.3 72 18 145/94 (111) 96 01/18/17 11:00 54 01/18/17 07:00 97.3 76 14 155/70 (98) 95 01/18/17 07:00 72 01/18/17 06:00 98.2 70 16 138/69 (92) 96 01/18/17 03:00 53 01/17/17 23:30 97.6 66 16 140/63 (88) 97 01/17/17 23:00 80 01/17/17 20:00 97.5 75 16 168/84 (112) 98 01/17/17 19:00 74 Intake & Output 01/18/17 01/18/17 06:59 18:59 Intake Total 120 ml Balance 120 ml Intake Oral 120 ml # Voids 4 # Bowel Movements 2 Physical Exam CONSTITUTIONAL/GENERAL: This is an thin, elderly male in no acute distress. TUBES/LINES/DRAINS: PIV's. SKIN: Pale. No jaundice. Ecchymoses on upper extremities.Skin temperature appropriate. Not diaphoretic. Multiple skin tears and scabs on upper and lower extremities. Patches of dry/erythematous skin on bilateral forearms and hands. HEAD: Atraumatic. Normocephalic. EYES: Pupils equal and round and reactive. No scleral icterus. No injection or drainage. Fundi not examined. Wears eyeglasses. ENT: Hearing appears normal. Nose without bleeding or purulent drainage. Moist oral mucosa. NECK: Trachea midline. Supple, nontender. CARDIOVASCULAR: Regular rate and rhythm. Peripheral pulses symmetric. RESPIRATORY/CHEST: Symmetric, unlabored respirations. Clear to auscultation, diminished. Breath sounds equal bilaterally. GASTROINTESTINAL: Abdomen soft, non-tender, nondistended. No guarding. Bowel sounds present. GENITOURINARY: Without palpable bladder distension. Adult briefs in place. MUSCULOSKELETAL: Extremities without clubbing, cyanosis, or edema. No mottling or clubbing. NEUROLOGICAL: Alert to self. Confused as to place, time and situation. Baseline dementia. Moves all extremities. PSYCHIATRIC: Appears calm. Intermittent periods of restlessness/agitation. . Diagnostic Tests Laboratory Laboratory Tests Test 01/16/17 05:50 White Blood Count 9.0 TH/MM3 (4.0-11.0) Red Blood Count 5.14 MIL/MM3 (4.50-5.90) Hemoglobin 15.9 GM/DL (13.0-17.0) Hematocrit 46.9 % (39.0-51.0) Mean Corpuscular Volume 91.4 FL (80.0-100.0) Mean Corpuscular Hemoglobin 31.0 PG (27.0-34.0) Mean Corpuscular Hemoglobin Concent 33.9 % (32.0-36.0) Red Cell Distribution Width 14.7 % (11.6-17.2) Platelet Count 202 TH/MM3 (150-450) Mean Platelet Volume 10.4 FL (7.0-11.0) Blood Urea Nitrogen 43 MG/DL (7-18) Creatinine 2.22 MG/DL (0.60-1.30) Random Glucose 89 MG/DL (74-106) Calcium Level 10.0 MG/DL (8.5-10.1) Sodium Level 142 MEQ/L (136-145) Potassium Level 3.3 MEQ/L (3.5-5.1) Chloride Level 104 MEQ/L (98-107) Carbon Dioxide Level 29.1 MEQ/L (21.0-32.0) Anion Gap 9 MEQ/L (5-15) Estimat Glomerular Filtration Rate 28 ML/MIN (>89) Result Diagram: 01/16/1750 01/16/17 0550 Assessment and Plan Disease Oriented Problem List: (1) Acute exacerbation of CHF (congestive heart failure) (2) Non-ST elevated myocardial infarction (non-STEMI) (3) CAD (coronary artery disease) (4) Ischemic cardiomyopathy (5) Dementia (6) Acute on chronic kidney failure (7) Hypertension (8) Physical deconditioning Symptom Scale: (1) Restlessness and agitation 0-10 Scale: Unable to quantify Comment: Baseline dementia. (2) Shortness of breath 0-10 Scale: Unable to quantify Comment: Currently tolerating room air. Pertinent Non-Medical Issues Psychosocial: Patient originally from [place]. He is , he reports having 6 children. Pt served in the . Spiritual: No tenriism affiliation. Legal: Advance directives completed. Ethical issues impacting care: Patient unable to participating medical decision- making given dementia. Kevin Angulo acting as healthcare surrogate decision maker. . Important Contacts Kevin Campuzano/[facility] Daughter Dyan Campuzano Son Dennis Campuzano . Prognosis Mr. Campuzano [age]-year-old male with a medical history significant for dementia, hypertension, chronic kidney failure, CAD and squamous cell carcinoma. Patient arrived to ED on 01/11/17 after family called EMS secondary to worsening dementia/failure to thrive. Clinical course complicated by agitation/restlessness and hypotension. Patient's overall prognosis is guarded given multiple acute on chronic comorbidities to include CHF exacerbation, worsening kidney failure, ischemic cardiomyopathy with EF of 25%, acute kidney injury and dementia, as as well as advanced age, failure to thrive and physical deconditioning. Patient remains a high risk for further complications, continue decline and . . Code Status: Alternative Code Plan * CODE STATUS: Alt code/cardiac only. Pt's son Kev acting as HCS electing alternative code/cardiac code only with chest compressions, ACLS drugs and defibrillation. NO intubation/mechanical ventilation. * HEALTHCARE DECISION-MAKING: Patient unable to participating medical decision- making secondary to clinical condition, baseline dementia with worsening confusion. Advance directives in file, patient elected kevin Campuzano as healthcare surrogate decision-maker, first alternate surrogate son Dennis Campuzano. Second alternate surrogate his daughter Lea Salas. * GOALS OF CARE: 01/18/17- Kevin Angulo acting as HCS electing to discharge patient to SNF/rehab. Patient would likely need long-term placement as family has verbalized no longer being able to care for him at home. Hospice philosophy and benefits reviewed, son receptive to hospice should patient's clinical condition continues to worsen, additional complications or continue decline. Discussed with son that current code status to include alternative code /cardiac cannot be transferred to the SNF. Discussed that out in the community patient is either full code or no code. Son reports that he has been considering switching patient to NO code, however, needs to further discuss with additional family members. Reviewed with son that if NO code status is elected, [facility] DNR has to be completed and sign by a physician. Son verbalized understanding. * Patient to be discharge this afternoon to SNF. * SYMPTOMS: = Shortness of breath, exacerbated by CHF. O2 as needed, on fluid restriction. = Agitation/restlessness, baseline dementia. patient on Geodon and Aricept. * Case discussed with [employer]. * Palliative care contact information has been provided to patient's son Kev. * Palliative care will continue to follow-up as needed for further clarifications of goals of care as patient's clinical course continues to evolve. . Time Spent Total Floor Time (mins): 32 (Total time to include review of medical records, physical exam, telephone conversation with patient's son for goals of care, case discussion with [employer] bedside RN.) >50% Counseling/Coord of Care: Yes Attestation To help prompt me to consider important information that might be impacting today's encounter and assessment, information from prior notes written by myself or my colleagues may have been "brought forward" into today's note. My signature on this note, however, is an attestation that I personally performed the exam, history, and/or decision-making noted today, and, unless otherwise indicated, the interactions with patient, family, and staff as well as the review of records all occurred today. I also attest that the listed assessment and stated plan reflect my best clinical judgment today based on the combination of historical information, prior notes, and today's exam/ interactions. When time spent is documented, it refers only to time spent today by the signer, or if indicated, combined time spent today by collaborating physician/nurse practitioner. Carolina Ray Jan 18, 2017 15:45
== END 2017-01-18 15:49 | DRG 291 ==
LOC: NEPE 03:16 → NEDA 05:09 → HCIS 08:57
PROVIDERS: ADMIT Specialist; ATTEND Specialist
DX: I13.0 Hypertensive heart and chronic kidney disease with heart failure and stage 1 through stage 4 chronic kidney disease, or unspecified chronic kidney disease (principal); I50.23 Acute on chronic systolic (congestive) heart failure; N17.9 Acute kidney failure, unspecified; I95.9 Hypotension, unspecified; F03.91 Unspecified dementia, unspecified severity, with behavioral disturbance; I25.5 Ischemic cardiomyopathy; E87.6 Hypokalemia; I16.1 Hypertensive emergency; E78.5 Hyperlipidemia, unspecified; I25.10 Atherosclerotic heart disease of native coronary artery without angina pectoris; M19.90 Unspecified osteoarthritis, unspecified site; Z51.5 Encounter for palliative care; R62.7 Adult failure to thrive; N18.9 Chronic kidney disease, unspecified; Z78.1 Physical restraint status; Z95.1 Presence of aortocoronary bypass graft; Z95.5 Presence of coronary angioplasty implant and graft; Z91.14 Patient's other noncompliance with medication regimen
CPT/HCPCS: 70450; 71010; 76937; 80048; 81001; 83735; 83880; 84100; 84484; 85025; 85027; 85610; 85730; 93005; 93306; J1630; J1644; J1940; J3480; J7050